=== PATIENT | female | born 1985 | race Caucasian/White ===

== ENCOUNTER 2020-08-31 10:48 | Emergency (ER) | payer OTHER, SELFPAY ==
[2020-08-31 11:00] VITALS: BP 126/75; PULSE 72; RESP 17; TEMP 36.9; O2SAT 96
--- NOTE | 2020-08-31 11:44 | XR_ITS ---
EXAMINATION: XR CHEST CLINICAL INFORMATION: SOB and cough. COMPARISON: None TECHNIQUE: Frontal view of the chest was obtained. FINDINGS: No significant abnormality is noted involving the heart, lungs, mediastinum, bony thorax or soft tissues. XR/XR chest 1V IMPRESSION: Unremarkable chest exam.
--- NOTE | 2020-08-31 12:32 | ED_ITS ---
HPI - URI/Sore Throat General Chief Complaint: Upper Respiratory Symptoms Stated Complaint: flu like Time Seen by Provider: 08/31/20 11:44 Source: patient Mode of arrival: ambulatory History of Present Illness HPI Narrative: 35-year-old female presenting to ED complaining of productive cough, sore throat, and intermittent SOB x3 days. Reports chest discomfort when coughing. Reports was around others and jail house that are having similar symptoms. Denies fever, chills, recent travel, ear pain MD elicited complaint: cough and sore throat Related Data Allergies Allergy/AdvReac Type Severity Reaction Status Date / Time No Known Allergies Allergy Verified 08/31/20 11:03 Review of Systems Review of Systems: Constitutional: No Weight loss, No Fever, No Chills ENT/Mouth: No Ear Pain, + Nasal Congestion, No Sinus Pain, No Hoarseness, + sore throat, + Rhinorrhea, No Swallowing Difficulty Cardiovascular: + Chest Pain when coughing, + SOB Respiratory: + Cough, No Sputum, No Wheezing Skin: No Skin Lesions, No rash Yes all other systems are reviewed and are negative [facility] Past Medical History Medical History (Updated 08/31/20 @ 12:36 by CORY Ng) No known health problems Social History Social History Advance Directives: No Advance Directives Information Provided: No Physical Exam Vital Signs: Vital Signs: Vital Signs Temp Pulse Resp BP Pulse Ox 08/31/20 11:00 98.4 F 72 17 126/75 96 Body Mass Index 30.0 Const: General: cooperative and healthy appearing Orientation/consciousness: patient oriented x3 Limitations: no limitations HENMT: Head: Yes normal to inspection Ears: hearing grossly normal bilaterally General nose exam: Normal external nose present Face and sinus: Yes normal facial exam Mouth: Normal oral and palatal mucosa present Throat: Yes uvula midline and Yes abnormal tonsil (Mild bilateral tonsillar erythema. No swelling or exudates) Eyes: General: appearance normal, both eyes and all related structures EOM: EOMs intact bilaterally Neck: Neck: Yes normal visual inspection and Yes no lymphadenopathy Resp: Effort & Inspection: normal respiratory effort Auscultation: clear to auscultation bilaterally, no crackles, no rales and no rhonchi Cardio: Rate: regular rate Heart sounds: S1 normal heart sound present and S2 normal heart sound present Skin: Rashes: no rashes Wounds: no wounds Neuro: General: patient oriented x3 Gait exam (Neuro): Normal gait present Extrem: General: Yes normal to inspection Course Course Course Narrative: -CXR unremarkable Discharge Plan Discharge Clinical Impression: Viral infection Patient Disposition: Home, Self-Care Instructions: Viral Syndrome (ED) Additional Instructions: Your x-ray was unremarkable today in the ED You were tested for COVID-19, the results should be back in 1-3 days, we will call you positive for negative If he develops high fever unresolved by medications at home, constant worsening chest pain/shortness of breath return to the ED Follow-up with her doctor Based on your symptoms and history we have sent a COVID-19. Although your RESULT IS PENDING at this time. RESULTS should return within 72 hours. At this time you will be contacted with either NEGATIVE OR POSITIVE results. -Please wait until we contact you for your results. At this time you will be okay for discharge. Please plan for self quarantine for up to 14 days. Do not expose yourself to others. You may not go to work. If testing does come back negative you may return to activities as long as you are no longer having any symptoms for at least 3 days. Please continue to follow cold instructions and wash your hands frequently. You may take Tylenol as directed on the bottle for pain or fever. Patient seen in the emergency department on 04/30/2020 and should be excused from work until negative test results AND until 72 hours without any symptoms AND at least 10 days have passed since symptoms first appeared or since last exposure to COVID-19 positive patient CDC Guidelines for home isolation: - Stay away from others - WEAR A MASK if you are sick AND STAY HOME - Cover your mouth and nose with a tissue when you cough or sneeze. Dispose of tissues in a lined trash can and wash your hands immediately with soap and water for at least 20 seconds. If soap and water are not available, clean hands with alcohol-based hand refining machine operator that contains at least 60% alcohol. - Clean your hands often with soap and water for at least 20 seconds - Avoid touching your eyes, nose and mouth with unwashed hands - Do not share dishes, drinking glasses, cups, eating utensils, towels, or bedding with other people in your home. After using these items, wash them thoroughly with soap and water or put in the regulatory auditor. - Clean high-touch surfaces in your isolation area ( sick room and bathroom) every day; let a caregiver clean and disinfect high-touch surfaces in other areas of the home. Clean the area or item with soap and water or another detergent if it is dirty. Then, use a household disinfectant. - Limit contact with pets and animals: If you must care for a pet, wash your hands before and after interacting with them) Referrals: Physician,Unknown [Primary Care Provider] - 5 days (Your PCP) Stand Alone Forms: Work/School Release
== END 2020-08-31 12:43 | disposition home or self-care (01) ==
PROVIDERS: Physician Assistant; Emergency Provider Emergency Medicine
DX: B34.9 Viral infection, unspecified (principal); Z20.828 Contact with and (suspected) exposure to other viral communicable diseases
CPT/HCPCS: 71045; 87071; 87147; 87635; 87880; 99283

== ENCOUNTER 2023-04-06 08:43 | Emergency (ER) | payer OTHER, SELFPAY ==
--- NOTE | 2023-04-06 08:56 | ED_ITS ---
HPI - General Adult General Chief complaint: Abdominal Pain Stated complaint: abd pain Time Seen by Provider: 04/06/23 08:53 Source: patient Mode of arrival: ambulatory Limitations: no limitations History of Present Illness HPI narrative: Patient is a 37-year-old female with history of hepatitis C and cirrhosis pre senting with difficulty urinating as well as right upper quadrant abdominal pain and right flank pain. Intermittent nausea and vomiting. She reports subjective fevers for the past few nights, wakes up covered in sweat, has chills. States this morning was unable to urinate and has not urinated since. Denies any dysuria or hematuria. Denies any abnormal vaginal discharge. Denies any blood in stool or dark, tarry stools. She also reports that she has not menstruated for the past several months, and that prior to that her menses was typically very regular. She reports relapsing on injecting fentanyl and cocaine over the past two years. Has not seen a provider in over two years. Reports occasional shortness of breath but denies cough. Denies any prior abdominal surgeries. Denies chest pain. MD complaint: unable to urinate, abdominal pain Onset (ago): month(s) Location: abdomen Radiation: flank Severity scale (1-10): 6 Pain Consistency: intermittent Relieving factors: none Exacerbating factors: movement Associated symptoms: fever/chills, nausea/vomiting and shortness of breath Treatments prior to arrival: none Related Data Previous Rx's Medication Instructions Recorded cephalexin 500 mg capsule 500 mg PO QID #28 caps 04/06/23 Allergies Allergy/AdvReac Type Severity Reaction Status Date / Time No Known Allergies Allergy Verified 08/31/20 11:03 Review of Systems Review of Systems: As per HPI. Yes all other systems are reviewed and are negative Constitutional: Constitutional: Reports as per HPI [facility] Past Medical History Medical History (Updated 04/06/23 @ 11:58 by Ary Pereira NP) No known health problems Social History Social History Alcohol intake: current Alcohol intake frequency: 0-2 drinks per day Alcohol type: beer and hard liquor Smoked in Last 30 Days: Yes Use of substances other than those prescribed or required for medical reasons: Yes Substance Use Type: Heroin, IV Drugs and Marijuana Substance Use Frequency: Daily Last Used Substance: Hours (ago) Any prior treatment program specific to substance use: Yes Advance Directives: No Advance Directives Information Provided: No Patient : No Physical Exam ED Vital Signs: Vital Signs - 24 hr 04/06/23 09:03 04/06/23 09:06 Temperature 98.9 F Pulse Rate 121 H 112 H Respiratory Rate 22 H 20 Blood Pressure 137/70 Pulse Oximetry 98 98 Oxygen Delivery Method Room Air Room Air BMI result Body Mass Index 27.5 Vital signs have been reviewed and appear to be correct. Blood pressure normal. Heart rate tachycardic. Respiratory rate normal. Temperature normal. Oxygen saturation normal. Const General: cooperative, healthy appearing and no acute distress Orientation/consciousness: oriented to person, oriented to place, oriented to time and patient oriented x3 Limitations: no limitations HENMT Head: Yes normocephalic and Yes atraumatic Ears: external ears normal General nose exam: Normal external nose present Face and sinus: Yes face symmetric Mouth: oropharynx normal and moist mucous membranes Throat: Yes uvula midline Eyes Pupils: Equal, round and reactive pupils present Neck Neck: Yes normal visual inspection and Yes supple Resp Effort & Inspection: normal respiratory effort and able to speak in complete sentences Auscultation: clear to auscultation bilaterally Cardio Rate: regular rate Rhythm: regular rhythm Heart sounds: S1 normal heart sound present and S2 normal heart sound present GI Inspection: Yes normal to inspection Palpation (GI): Soft to palpation, nontender, no guarding and No Rebound tenderness present Auscultation: normoactive bowel sounds General: Yes no CVA tenderness Back/Spine/Pelvis Back: no CVA tenderness Skin General skin exam: elasticity normal and turgor normal Neuro General: oriented to person, oriented to place, oriented to time, patient oriented x3, moves all extremities, no focal motor deficits and CN's II-XI intact bilaterally Cranial nerves: Yes Equal, round and reactive pupils present Cognition (Neuro): normal cognition Extrem General: Yes full ROM, Yes no pedal edema and Yes no calf tenderness Psych Mental Status: mental status grossly normal Affect: normal affect Thought process: Normal thought process present Course Course Course Narrative: 10:52 Critical magnesium of 1.4 received from lab, 2g IV ordered 11:46 Patient able to urinate, 2+ leukocytes, + nitrites, unlikely pyelo as no CVA tenderness, afebrile. Elevated LFTs appear consistent with baseline. No indication for imaging at this time as abdomen is soft and nontender on exam. Will complete infusion of mag and IVF and discharge home on antibiotics. Instructed patient to follow up with PCP this week. All results discussed with patient and all questions answered, return precautions discussed at bedside. Medications Administered Discontinued Medications Generic Name Dose Route Start Last Admin Trade Name Randolphq PRN Reason Stop Dose Admin Sodium Chloride 1,000 mls @ 999 mls/hr 04/06/23 09:45 04/06/23 11:21 Ns IV 04/06/23 10:45 Infused .Q1H1M ANISHA Infusion Magnesium Sulfate 2 gm in 50 mls @ 25 mls/hr 04/06/23 10:53 04/06/23 11:24 Magnesium Sulfate/H2o IV 04/06/23 12:52 25 mls/hr ONCE ONE Administration Sodium Chloride 1,000 mls @ 999 mls/hr 04/06/23 11:30 04/06/23 12:14 Ns IV 04/06/23 12:30 999 mls/hr .Q1H1M ANISHA Administration Medical Decision Making Medical Decision Making [facility] Narrative: Patient is a 37-year-old female with history of hepatitis C and cirrhosis presenting with difficulty urinating as well as right upper quadrant abdominal pain and right flank pain. On exam patient is anxious, tearful, awake, A+Ox3, normal neurological exam without focal deficits, lungs clear throughout, abdomen soft and nontender, no CVA tenderness, no lower extremity edema. Concern for UTI/pyelonephritis, nephrolithiasis, , cholecystitis, pancreatitis. Less likely ACS/[place], pna, PE (low risk [place]). Unlikely AAA rupture, aortic dissection, mesenteric ischemia, bowel obstruction. Plan: bladder scan, EKG, labs including troponin, UA, reassess. Please refer to course for remaining clinical decision making. Differential Diagnosis Differential Diagnoses: The differential diagnosis associated with the presentation includes As above. Lab Data [facility] Lab Attestation statement: I reviewed the patient's lab results. 04/06/23 09:53 04/06/23 Unknown Labs: Lab Results 04/06/23 04/06/23 04/06/23 Range/Units 09:53 10:03 10:03 WBC 6.0 (4.8-10.8) X10*3/uL RBC 4.07 L (4.20-5.50) X10*6/uL Hgb 12.1 (12.0-16.0) g/dl Hct 36.4 L (37.0-47.0) % MCV 89.4 (80.0-98.0) fL MCH 29.7 (27.0-33.0) pg MCHC 33.2 (31.0-35.0) g/dl RDW 14.2 (11.0-16.0) % Plt Count 207 (160-400) X10*3/uL MPV 10.3 (9.4-12.3) fL Immature Gran % (Auto) 0.3 (0.0-0.4) % Neut % (Auto) 60.4 (45-73) % Lymph % (Auto) 28.6 (20-40) % Teller % (Auto) 9.5 (2-11) % Eos % (Auto) 0.5 (0-4) % Baso % (Auto) 0.7 (0-2) % Lymph # (Auto) 1.7 (1.2-4.9) X10*3/uL Teller # (Auto) 0.6 (0.1-1.2) X10*3/uL Eos # (Auto) 0.0 (0.0-0.4) X10*3/uL Baso # (Auto) 0.0 (0.0-0.2) X10*3/uL Abs Immat Gran (auto) 0.02 (0.00-0.03) X10*3/uL Absolute Neuts (auto) 3.6 (2.0-8.3) x10*3/uL Absolute Nucleated RBC 0.000 (0.0-0.012) X10*3/uL Nucleated RBC % (auto) 0.0 (0.0-0.2) /100WBC PT 14.7 H (10.0-13.1) SEC INR 1.3 H (0.9-1.1) Sodium (135-145) mmol/L Potassium (3.3-5.1) mmol/L Chloride (96-108) mmol/L Carbon Dioxide (22-29) mmol/L Anion Gap (12-20) BUN (9-16) mg/dL Creatinine (0.5-1.4) mg/dL Estim Creat Clear Calc Estimated GFR Random Glucose (60-115) mg/dL Calcium (8.4-10.2) mg/dL Magnesium (1.6-2.6) mg/dL Total Bilirubin (0.0-1.0) mg/dL Direct Bilirubin (0.0-0.5) mg/dL AST (5-31) U/L ALT (0-31) U/L Alkaline Phosphatase (39-117) U/L Troponin I High Sens < 2.7 (<3.5-17.0) ng/L Total Protein (6.5-8.0) g/dL Albumin (3.5-5.0) g/dL Lipase (8-78) U/L Beta HCG, Quant mIU/mL Urine Color Urine Appearance Urine pH (5.0-9.0) Ur Specific [place] (1.005-1.025) Urine Protein (Neg-Trace) mg/dL Urine Glucose (UA) (Negative) mg/dL Urine Ketones (Negative) mg/dL Urine Blood (Negative) Urine Nitrite (Negative) Ur Leukocyte Esterase (Negative) Urine RBC (0-2) /HPF Urine WBC (0-5) /HPF Ur Squamous Epith Cells (0-2) /HPF Urine Bacteria (None Seen) Hyaline Casts (0-2) /LPF 04/06/23 04/06/23 Range/Units 11:26 Unknown WBC (4.8-10.8) X10*3/uL RBC (4.20-5.50) X10*6/uL Hgb (12.0-16.0) g/dl Hct (37.0-47.0) % MCV (80.0-98.0) fL MCH (27.0-33.0) pg MCHC (31.0-35.0) g/dl RDW (11.0-16.0) % Plt Count (160-400) X10*3/uL MPV (9.4-12.3) fL Immature Gran % (Auto) (0.0-0.4) % Neut % (Auto) (45-73) % Lymph % (Auto) (20-40) % Teller % (Auto) (2-11) % Eos % (Auto) (0-4) % Baso % (Auto) (0-2) % Lymph # (Auto) (1.2-4.9) X10*3/uL Teller # (Auto) (0.1-1.2) X10*3/uL Eos # (Auto) (0.0-0.4) X10*3/uL Baso # (Auto) (0.0-0.2) X10*3/uL Abs Immat Gran (auto) (0.00-0.03) X10*3/uL Absolute Neuts (auto) (2.0-8.3) x10*3/uL Absolute Nucleated RBC (0.0-0.012) X10*3/uL Nucleated RBC % (auto) (0.0-0.2) /100WBC PT (10.0-13.1) SEC INR (0.9-1.1) Sodium 136 (135-145) mmol/L Potassium 3.8 (3.3-5.1) mmol/L Chloride 99 (96-108) mmol/L Carbon Dioxide 29 (22-29) mmol/L Anion Gap 12 (12-20) BUN 10 (9-16) mg/dL Creatinine 0.94 (0.5-1.4) mg/dL Estim Creat Clear Calc 80.0 Estimated GFR > 60 Random Glucose 110 (60-115) mg/dL Calcium 10.0 (8.4-10.2) mg/dL Magnesium 1.4 L* (1.6-2.6) mg/dL Total Bilirubin 1.4 H (0.0-1.0) mg/dL Direct Bilirubin 0.6 H (0.0-0.5) mg/dL AST 65 H (5-31) U/L ALT 52 H (0-31) U/L Alkaline Phosphatase 83 (39-117) U/L Troponin I High Sens (<3.5-17.0) ng/L Total Protein 7.5 (6.5-8.0) g/dL Albumin 3.5 (3.5-5.0) g/dL Lipase 15 (8-78) U/L Beta HCG, Quant < 2 mIU/mL Urine Color Yellow Urine Appearance Cloudy Urine pH 7.0 (5.0-9.0) Ur Specific [place] <= 1.005 (1.005-1.025) Urine Protein Negative (Neg-Trace) mg/dL Urine Glucose (UA) Negative (Negative) mg/dL Urine Ketones Negative (Negative) mg/dL Urine Blood Negative (Negative) Urine Nitrite Positive H (Negative) Ur Leukocyte Esterase Moderate (2+) H (Negative) Urine RBC 0-2 (0-2) /HPF Urine WBC 6-10 H (0-5) /HPF Ur Squamous Epith Cells 6-10 (0-2) /HPF Urine Bacteria 4+ (None Seen) Hyaline Casts 0-2 (0-2) /LPF Independent Interpretation I performed an independent interpretation of an: EKG Interpretation: sinus tachycardia, rate 105bpm, normal NV and QT intervals, no evidence of STEMI External Record Review External record reviewed: Inpatient record, Office record and Outpatient record Prescription Management I considered prescription management with: Antibiotic Chronic Conditions Patient?s care impacted by: Other (hepatitis, cirrhosis) Discharge Plan Discharge Clinical Impression: Urinary tract infection Patient Disposition: Home, Self-Care Instructions: Urinary Tract Infection in Women (ED), Urinary Tract Infection in Women (DC) Additional Instructions: You have been evaluated in the emergency department today for abdominal pain. Your evaluation did not show evidence of medical conditions requiring emergent intervention at this time. Your liver enzymes were elevated so please follow up with your primary care provider this week. You are being prescribed an antibiotic for your urinary tract infection. Please complete the full course of antibiotics even if your symptoms improve. Return to the emergency department if you experience worsening or uncontrolled pain, fevers 100.4? F or greater, recurrent vomiting, inability to tolerate food or fluids by mouth, bloody stools or vomit, black or tarry stools, inability to urinate, back or flank pain, or any other concerning symptoms. Prescriptions: New cephalexin 500 mg capsule 500 mg PO QID Qty: 28 0RF Referrals: [facility] [place] Gastroenterology Services [Provider Group]
[2023-04-06 09:03] VITALS: BP 137/70; PULSE 121; RESP 22; TEMP 37.2; O2SAT 98; BMI 27.5
[2023-04-06 09:06] VITALS: PULSE 112; RESP 20; O2SAT 98
--- OUTSIDE RECORDS SUMMARY | 2023-04-06 09:18 | XMS_ITS | Continuity of Care Document ---
Author Name Unknown Organization [facility] Address [address] [place] [address]- Care Team Providers Care Authorization Coordinator Name Role Phone Ryan Menchaca MD Primary Care Physician Encounter [facility] [place] Date(s): 03/12/20 - 03/19/20 [facility] [address] [place] [id number] Attending Physician: Megha Jacobsen MD Admitting Physician: Lee Orlando MD Allergies, Adverse Reactions, Alerts Substance Reaction Severity Status NKA Active Immunizations Given and Recorded Vaccine Date Status Refusal Reason influenza virus vaccine, inactivated 11/14/19 Give n influenza virus vaccine, inactivated 1 08/21/17 Gi claudia influenza virus vaccine, inactivated 08/18/15 Give n tetanus/diphtheria/pertussis, acel(Tdap) 08/21/17 Given Hepatitis A Adult Vaccine 12/16/15 Given 1Result Comment: [08/21/2017] [id number] Medications albuterol 0.083% inhalation solution 3 mL = 2.5 mg, Neb, Once, Given in clinic per Ashley Bassett RN, # 3 mL, 0 Refills, Soft Stop, 11/02/17 11:58:00 Start Date: 11/02/17 Status: Ordered albuterol CFC free 90 mcg/inh inhalation aerosol 2, puffs, Inhalation, Every 4 hours, PRN, # 1 each, Refills 1, Tot. Refills 1, Maintenance, 11/02/17 11:47:19, Aerosol, Route to Pharmacy Electronically, [id number], [id number], Compound Start Date: 11/02/17 Stop Date: 01/01/18 Status: Ordered FLUoxetine 40 mg oral capsule 1 capsule = 40 mg, By Mouth, Daily, # 30 capsule, 2 Refills, Maintenance, 03/12/20 16:17:00 EDT, Capsule, [facility][id number], 163, cm, 12/29/19 9:37:00 EST, Height, 79, kg, 12/20/19 13:33:00 EST, DryWeight Start Date: 03/12/20 Status: Ordered Liletta 52 mg intrauteral device 1 each = 52 mg, Intrauterine, Once, # 1 each, 0 Refills, Soft Stop, 10/25/17 14:21:03 Start Date: 10/25/17 Status: Ordered Methadone = 100 mg, By Mouth, Daily, 0 Refills, Maintenance, 08/11/15 8:54:30 EDT, [facility] Start Date: 08/11/15 Status: Ordered Nicotine 2 mg gum 1 each = 2 mg, Chew, Every 2 hours, PRN as needed for smoking cessation, # 160 each, 1 Refills, Maintenance, 12/29/19 9:43:00 EST, Gum, [facility]/pharm[facility] #[id number], 163, cm, 12/29/19 9:37:00 EST, Height, 79, kg, 12/20/19 13:33:00 EST, Dry Weight Start Date: 12/29/19 Status: Ordered Nicotine 7 mg/24 hour patch 1 patch, Topically, Daily, # 30 patch, 1 Refills, Maintenance, 12/29/19 9:43:00 EST, Patch, [facility]/pharmacy #[id number], 1 patch Topically Daily, 163, cm, 12/29/19 9:37:00 EST, Height, 79, kg, 12/20/19 13:33:00 EST, Dry Weight Start Date: 12/29/19 Status: Ordered Multivitamins By Mouth, Daily, 0 Refills, Maintenance, 09/04/17 13:43:27 Start Date: 09/04/17 Status: Ordered traZODone 100 mg oral tablet 100 mg, 1, tablet, By Mouth, Daily at bedtime, # 30 tablet, Refills 0, Tot. Refills 0, Maintenance,02/25/20 8:41:00 EDT, Route to Pharmacy Electronically, [facility] #[id number], 163, cm, 12/29/19 9:37:00 EST, Height, 79, kg, 12/20/19 13:33:00 EST, Dry W... 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
--- OUTSIDE RECORDS SUMMARY | 2023-04-06 09:18 | XMS_ITS | Continuity of Care Document ---
Author Name Unknown Organization [facility] Address [address] [place] [address]- Care Team Providers Care Finished Goods Planner Name Role Phone Ryan Menchaca MD Primary Care Physician Encounter [facility] [place] Date(s): 02/25/20 - 03/03/20 [facility] [address] [place] [address]- [facility] Attending Physician: Asiya Nascimento MD Admitting Physician: Johanny SOUSA, Lee Betancur Allergies, Adverse Reactions, Alerts Substance Reaction Severity Status NKA Active Immunizations Given and Recorded Vaccine Date Status Refusal Reason influenza virus vaccine, inactivated 11/14/19 Give n influenza virus vaccine, inactivated 1 08/21/17 Gi claudia influenza virus vaccine, inactivated 08/18/15 Give n tetanus/diphtheria/pertussis, acel(Tdap) 08/21/17 Given Hepatitis A Adult Vaccine 12/16/15 Given 1Result Comment: [08/21/2017] [id number] Medications albuterol 0.083% inhalation solution 3 mL = 2.5 mg, Neb, Once, Given in clinic per Ashley Bassett RN, # 3 mL, 0 Refills, Soft Stop, 11/02/17 11:58:00 Start Date: 11/02/17 Status: Ordered albuterol CFC free 90 mcg/inh inhalation aerosol 2, puffs, Inhalation, Every 4 hours, PRN, # 1 each, Refills 1, Tot. Refills 1, Maintenance, 11/02/17 11:47:19, Aerosol, Route to Pharmacy Electronically, [id number], [id number], Compound Start Date: 11/02/17 Stop Date: 01/01/18 Status: Ordered FLUoxetine 20 mg oral capsule 20 mg, 1, capsule, By Mouth, Daily, # 30 capsule, Refills 3, Tot. Refills 3, Maintenance, 12/29/19 9:56:00 EST, Route to Pharmacy Electronically, [facility]/pharmacy #[id number], 163, cm, 12/29/19 9:37:00 EST, Height, 79, kg, 12/20/19 13:33:00 EST, Dry Weight Start Date: 12/29/19 Stop Date: 04/27/20 Status: Ordered Liletta 52 mg intrauteral device 1 each = 52 mg, Intrauterine, Once, # 1 each, 0 Refills, Soft Stop, 10/25/17 14:21:03 Start Date: 10/25/17 Status: Ordered Methadone = 100 mg, By Mouth, Daily, 0 Refills, Maintenance, 08/11/15 8:54:30 EDT, [facility] Start Date: 08/11/15 Status: Ordered Nicotine 2 mg gum 1 each = 2 mg, Chew, Every 2 hours, PRN as needed for smoking cessation, # 160 each, 1 Refills, Maintenance, 12/29/19 9:43:00 EST, Gum, [facility]/pharmacy #[id number], 163, cm, 12/29/19 9:37:00 EST, Height, 79, kg, 12/20/19 13:33:00 EST, Dry Weight Start Date: 12/29/19 Status: Ordered Nicotine 7 mg/24 hour patch 1 patch, Topically, Daily, # 30 patch, 1 Refills, Maintenance, 12/29/19 9:43:00 EST, Patch, [facility]/pharmacy #[id number], 1 patch Topically Daily, 163, cm, [...] Maintenance,02/25/20 8:41:00 EDT, Route to Pharmacy Electronically, [facility]/pharmacy #1130, 163, cm, 12/29/19 9:37:00 EST, Height, [...]
--- OUTSIDE RECORDS SUMMARY | 2023-04-06 09:18 | XMS_ITS | Continuity of Care Document ---
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 Name Role Phone Gulshan Sherman MD Primary Care Physician [phone] Encounter [facility] Date(s): 11/02/21 - 12/02/21 [facility] [address] [place] [id number]- Attending Physician: Rodrick Encinas Admitting Physician: Rodrick Encinas Referring Physician: AdmtrRodrick Allergies, Adverse Reactions, Alerts No Known Allergies Immunizations Given and Recorded Vaccine Date Status Refusal Reason influenza virus vaccine, inactivated 11/14/19 Give n influenza virus vaccine, inactivated 1 08/21/17 Gi claudia influenza virus vaccine, inactivated 08/18/15 Give n tetanus/diphtheria/pertussis, acel(Tdap) 08/21/17 Given Hepatitis A Adult Vaccine 12/16/15 Given 1Result Comment: [08/21/2017] [id number] Medications albuterol 0.083% inhalation solution 3 mL = 2.5 mg, Neb, Once, Given in clinic per Ashley Bassett RN, # 3 mL, 0 Refills, Soft Stop, 11/02/17 11:58:00 Start Date: 11/02/17 Status: Ordered albuterol CFC free 90 mcg/inh inhalation aerosol 2, puffs, Inhalation, Every 4 hours, PRN, # 1 each, Refills 1, Tot. Refills 1, Maintenance, 11/02/17 11:47:19, Aerosol, Route to Pharmacy Electronically, [id number], [facility]pharmacy [facility][id number], Compound Start Date: 11/02/17 Stop Date: 01/01/18 Status: Ordered FLUoxetine 40 mg oral capsule 1 capsule = 40 mg, By Mouth, Daily, # 30 capsule, 2 Refills, Maintenance, 07/28/20 15:59:00 EDT, Capsule, [facility]304[facility], 163, cm, 12/29/19 9:37:00 EST, Height, 79, kg, 12/20/19 13:33:00 EST, Dry Weight Start Date: 07/28/20 Status: Ordered ibuprofen 600 mg oral tablet 600 mg, 1, tablet, By Mouth, Every 8 hours, PRN, with food or milk, # 50 tablet, Refills 0, Tot. Refills 0, Maintenance, Headache, 06/23/20 13:21:00 EDT, Route to Pharmacy Electronically, [facility]/pharmacy #[id number], 163, cm, 12/29/19 9:37:00 EST, Height, 79,... Start Date: 06/23/20 Status: Ordered Liletta 52 mg intrauteral device 1 each = 52 mg, Intrauterine, Once, # 1 each, 0 Refills, Soft Stop, 10/25/17 14:21:03 Start Date: 10/25/17 Status: Ordered Methadone = 100 mg, By Mouth, Daily, 0 Refills, Maintenance, 08/11/15 8:54:30 EDT, [facility] Start Date: 08/11/15 Status: Ordered Nicotine 2 mg gum 1 each = 2 mg, Chew, Every 2 hours, PRN as needed for smoking cessation, # 160 each, 1 Refills, Maintenance, 12/29/19 9:43:00 EST, Gum, [facility]/pharmacy #[id number], 163, cm, 12/29/19 9:37:00 EST, Height, 79, kg, 12/20/19 13:33:00 EST, Dry Weight Start Date: 12/29/19 Status: Ordered Nicotine 7 mg/24 hour patch 1 patch, Topically, Daily, # 30 patch, 1 Refills, Maintenance, 12/29/19 9:43:00 EST, Patch, [id number], 1 patch Topically Daily, 163, cm, 12/29/19 9:37:00 EST, Height, 79, kg, 12/20/19 13:33:00 EST, Dry Weight Start Date: 12/29/19 Status: Ordered Multivitamins By Mouth, Daily, 0 Refills, Maintenance, 09/04/17 13:43:27 Start Date: 09/04/17 Status: Ordered traZODone 100 mg oral tablet 100 mg, 1, tablet, By Mouth, Daily at bedtime, # 30 tablet, Refills 5, Tot. Refills 5, Maintenance,06/03/20 16:08:00 EDT, Route to Pharmacy Electronically, [facility]/pharmacy #1130, 163, cm, 12/29/19 9:37:00 EST, Height, 79, kg, 12/20/19 13:33:00 EST, Dry... 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
--- OUTSIDE RECORDS SUMMARY | 2023-04-06 09:18 | XMS_ITS | Continuity of Care Document ---
Author Name Unknown Organization [facility] Address [address] [place] [address]- Care Team Providers Care Manufacturing Business Analyst Name Role Phone Brittany SOUSA, Bridgette Betancur Primary Care Physician Encounter [facility] Date(s): 07/28/20 - 08/27/20 [facility] [address] [place] [address]- [facility] Allergies, Adverse Reactions, Alerts Substance Reaction Severity Status NKA Active Immunizations Given and Recorded Vaccine Date Status Refusal Reason influenza virus vaccine, inactivated 11/14/19 Give n influenza virus vaccine, inactivated 1 08/21/17 Gi claudia influenza virus vaccine, inactivated 08/18/15 Give n tetanus/diphtheria/pertussis, acel(Tdap) 08/21/17 Given Hepatitis A Adult Vaccine 12/16/15 Given 1Result Comment: [08/21/2017] [id number] Medications albuterol 0.083% inhalation solution 3 mL = 2.5 mg, Neb, Once, Given in clinic per Ashley Bassett RN, # 3 mL, 0 Refills, Soft Stop, 11/02/17 11:58:00 Start Date: 11/02/17 Status: Ordered albuterol CFC free 90 mcg/inh inhalation aerosol 2, puffs, Inhalation, Every 4 hours, PRN, # 1 each, Refills 1, Tot. Refills 1, Maintenance, 11/02/17 11:47:19, Aerosol, Route to Pharmacy Electronically, [id number], [facility]/pharmacy #1130, Compound Start Date: 11/02/17 Stop Date: 01/01/18 Status: Ordered FLUoxetine 40 mg oral capsule 1 capsule = 40 mg, By Mouth, Daily, # 30 capsule, 2 Refills, Maintenance, 07/28/20 15:59:00 EDT, Capsule, [facility], 163, cm, 12/29/19 9:37:00 EST, Height, 79, kg, 12/20/19 13:33:00 EST, Dry Weight Start Date: 07/28/20 Status: Ordered ibuprofen 600 mg oral tablet 600 mg, 1, tablet, By Mouth, Every 8 hours, PRN, with food or milk, # 50 tablet, Refills 0, Tot. Refills 0, Maintenance, Headache, 06/23/20 13:21:00 EDT, Route to Pharmacy Electronically, [facility]/pharmacy #183, 163, cm, 12/29/19 9:37:00 EST, Height, 79,... Start Date: 06/23/20 Status: Ordered Liletta 52 mg intrauteral device 1 each = 52 mg, Intrauterine, Once, # 1 each, 0 Refills, Soft Stop, 10/25/17 14:21:03 Start Date: 10/25/17 Status: Ordered Methadone = 100 mg, By Mouth, Daily, 0 Refills, Maintenance, 08/11/15 8:54:30 EDT, [facility] Start Date: 08/11/15 Status: Ordered Nicotine 2 mg gum 1 each = 2 mg, Chew, Every 2 hours, PRN as needed for smoking cessation, # 160 each, 1 Refills, Maintenance, 12/29/19 9:43:00 EST, Gum, [id number], 163, cm, 12/29/19 9:37:00 EST, Height, [...] Maintenance,06/03/20 16:08:00 EDT, Route to Pharmacy Electronically, [facility]/pharmacy #1130, 163, cm, 12/29/19 9:37:00 EST, [...]
--- OUTSIDE RECORDS SUMMARY | 2023-04-06 09:18 | XMS_ITS | Continuity of Care Document ---
Author Name Unknown Organization 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 Name Role Phone Ryan Menchaca MD Primary Care Physician Encounter [facility] [place] Date(s): 11/10/19 - 01/17/[address] [address]- [facility] Attending Physician: Not on Staff, Attending MD Referring Physician: Ryan Menchaca MD Allergies, Adverse Reactions, Alerts Substance Reaction Severity Status NKA Active Immunizations Given and Recorded Vaccine Date Status Refusal Reason influenza virus vaccine, inactivated 11/14/19 Give n influenza virus vaccine, inactivated 1 08/21/17 Gi claudia influenza virus vaccine, inactivated 08/18/15 Give n tetanus/diphtheria/pertussis, acel(Tdap) 08/21/17 Given Hepatitis A Adult Vaccine 12/16/15 Given 1Result Comment: [08/21/2017] [id number] Medications albuterol 0.083% inhalation solution 3 mL = 2.5 mg, Neb, Once, Given in clinic per Ashley Bassett RN, # 3 mL, 0 Refills, Soft Stop, 11/02/17 11:58:00 Start Date: 11/02/17 Status: Ordered albuterol 90 mcg/inh inhalation powder 2 puffs, Inhalation, Every 4 hours, PRN as needed, # 1 each, 0 Refills, Maintenance, 09/01/16 14:22:35, Powder, 2 puffs Inhalation Every 4 hours,PRN:as needed Start Date: 09/01/16 Status: Ordered albuterol CFC free 90 mcg/inh inhalation aerosol 2, puffs, Inhalation, Every 4 hours, PRN, # 1 each, Refills 1, Tot. Refills 1, Maintenance, 11/02/17 11:47:19, Aerosol, Route to Pharmacy Electronically, [id number], [facility]/pharmacy #1130, Compound Start Date: 11/02/17 Stop Date: 01/01/18 Status: Ordered Azithromycin 5 Day Dose Pack 250 mg oral tablet 1 pack/packet, By Mouth, Once, # 6 tablet, 0 Refills, Soft Stop, 11/02/17 11:47:20, Tablet Start Date: 11/02/17 Status: Ordered Bactrim DS 800 mg-160 mg oral tablet 1 tablet, By Mouth, 2 times a day, # 6 tablet, 0 Refills, Maintenance, 02/05/18 11:46:25 EDT, 1 tablet By Mouth 2 times a day,x3 days Start Date: 02/05/18 Stop Date: 02/08/18 Status: Ordered FLUoxetine 20 mg oral capsule 20 mg, 1, capsule, By Mouth, Daily, # 30 capsule, Refills 3, Tot. Refills 3, Maintenance, 12/29/19 9:56:00 EST, Route to Pharmacy Electronically, [facility]/pharmacy #[id number], 163, cm, 12/29/19 9:37:00 EST, [...] 1 Refills, Maintenance, 12/29/19 9:43:00 EST, Gum, [facility]/pharmacy #0838, 163, cm, 12/29/19 9:37:00 EST, Height, 79, kg, 12/20/19 13:33:00 EST, Dry Weight Start Date: 12/29/19 Status: Ordered Nicotine 7 mg/24 hour patch 1 patch, Topically, Daily, # 30 patch, 0 Refills, Maintenance, 08/21/17 14:18:42, Patch, 1 patch Topically Daily Start Date: 08/21/17 Status: Ordered Nicotine 7 mg/24 hour patch 1 patch, Topically, Daily, # 30 patch, 1 Refills, Maintenance, 12/29/19 9:43:00 EST, Patch, [facility]/pharmacy #[id number], 1 patch Topically Daily, 163, cm, 12/29/19 9:37:00 EST, Height, 79, kg, 12/20/19 13:33:00 EST, Dry Weight Start Date: 12/29/19 Status: Ordered Multivitamins By Mouth, Daily, 0 Refills, Maintenance, 09/04/17 13:43:27 Start Date: 09/04/17 Status: Ordered traZODone 50 mg oral tablet 50 mg, 1, tablet, By Mouth, Daily at bedtime, # 30 tablet, Refills 0, Maintenance, 12/20/19 13:35:00 EST Start Date: 12/20/19 Status: Ordered Problem List Condition Effective Dates Status Health Status Inform ant Bipolar disorder(Confirmed) Active 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
--- OUTSIDE RECORDS SUMMARY | 2023-04-06 09:18 | XMS_ITS | Continuity of Care Document ---
Author Name Unknown Organization [facility] Address [address] [place] [address]- Care Team Providers Care Mirror Polisher Name Role Phone Brittany SOUSA, Bridgette Betancur Primary Care Physician Encounter [facility] [place] Date(s): 02/17/20 - 06/16/20 [facility] [address] [place] [address]- [facility] Attending Physician: Noam Street MD Admitting Physician: Noam Street MD Referring Physician: Bria SOUSA, [facility] Allergies, Adverse Reactions, Alerts Substance Reaction Severity Status NKA Active Immunizations Given and Recorded Vaccine Date Status Refusal Reason influenza virus vaccine, inactivated 11/14/19 Give n influenza virus vaccine, inactivated 1 08/21/17 Gi claudia influenza virus vaccine, inactivated 08/18/15 Give n tetanus/diphtheria/pertussis, acel(Tdap) 08/21/17 Given Hepatitis A Adult Vaccine 12/16/15 Given 1Result Comment: [08/21/2017] [id number] Medications albuterol 0.083% inhalation solution 3 mL = 2.5 mg, Neb, Once, Given in clinic per Ashley Bassett RN, # 3 mL, 0 Refills, Soft Stop, 11/02/17 11:58:00 Start Date: 11/02/17 Status: Ordered albuterol CFC free 90 mcg/inh inhalation aerosol 2, puffs, Inhalation, Every 4 hours, PRN, # 1 each, Refills 1, Tot. Refills 1, Maintenance, 11/02/17 11:47:19, Aerosol, Route to Pharmacy Electronically, [id number], [facility]/pharmacy #1130, Compound Start Date: 11/02/17 Stop Date: 01/01/18 Status: Ordered FLUoxetine 40 mg oral capsule 1 capsule = 40 mg, By Mouth, Daily, # 30 capsule, 2 Refills, Maintenance, 03/12/20 16:17:00 EDT, Capsule, [facility]/pharmacy #1130, 163, cm, 12/29/19 9:37:00 [...] 1 Refills, Maintenance, 12/29/19 9:43:00 EST, Gum, [facility]/pharmacy #0838, 163, cm, 12/29/19 9:37:00 EST, Height, 79, kg, 12/20/19 13:33:00 EST, Dry Weight Start Date: 12/29/19 Status: Ordered Nicotine 7 mg/24 hour patch 1 patch, Topically, Daily, # 30 patch, 1 Refills, Maintenance, 12/29/19 9:43:00 EST, Patch, [facility]/pharmacy #0838, 1 patch Topically Daily, [...] Maintenance,06/03/20 16:08:00 EDT, Route to Pharmacy Electronically, [facility]/pharmacy #1130, 163, cm, 12/29/19 9:37:00 [...]
--- OUTSIDE RECORDS SUMMARY | 2023-04-06 09:18 | XMS_ITS | Continuity of Care Document ---
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 Name Role Phone Gulshan Sherman MD Primary Care Physician Encounter [facility] Date(s): 10/20/21 - 12/02/21 [facility] [address] [place] [id number]- Attending Physician: Not on Staff, Attending MD Allergies, Adverse Reactions, Alerts No Known Allergies Immunizations Given and Recorded Vaccine Date Status Refusal Reason influenza virus vaccine, inactivated 11/14/19 Give n influenza virus vaccine, inactivated 1 08/21/17 Gi claudia influenza virus vaccine, inactivated 08/18/15 Give n tetanus/diphtheria/pertussis, acel(Tdap) 08/21/17 Given Hepatitis A Adult Vaccine 12/16/15 Given 1Result Comment: [08/21/2017] [id number] Medications albuterol 0.083% inhalation solution 3 mL = 2.5 mg, Neb, Once, Given in clinic per Ashley Bassett RN, # 3 mL, 0 Refills, Soft Stop, 11/02/17 11:58:00 Start Date: 11/02/17 Status: Ordered albuterol CFC free 90 mcg/inh inhalation aerosol 2, puffs, Inhalation, Every 4 hours, PRN, # 1 each, Refills 1, Tot. Refills 1, Maintenance, 11/02/17 11:47:19, Aerosol, Route to Pharmacy Electronically, [id number], [facility]/pharmacy #1130, Compound Start Date: 12/29/17 Stop Date: 01/01/18 Status: Ordered FLUoxetine 40 mg oral capsule 1 capsule = 40 mg, By Mouth, Daily, # 30 capsule, 2 Refills, Maintenance, 07/28/20 15:59:00 EDT, Capsule, [facility]61299, 163, cm, 12/29/19 9:37:00 EST, Height, 79, kg, 12/20/19 13:33:00 EST, Dry Weight Start Date: 07/28/20 Status: Ordered ibuprofen 600 mg oral tablet 600 mg, 1, tablet, By Mouth, Every 8 hours, PRN, with food or milk, # 50 tablet, Refills 0, Tot. Refills 0, Maintenance, Headache, 06/23/20 13:21:00 EDT, Route to Pharmacy Electronically, [facility]/pharmacy #2071, 163, cm, 12/29/19 9:37:00 EST, Height, 79,... Start Date: 06/23/20 Status: Ordered Liletta 52 mg intrauteral device 1 each = 52 mg, Intrauterine, Once, # 1 each, 0 Refills, Soft Stop, 10/25/17 14:21:03 Start Date: 10/25/17 Status: Ordered Methadone = 100 mg, By Mouth, Daily, 0 Refills, Maintenance, 08/11/15 8:54:30 EDT, [facility] Start Date: 08/11/15 Status: Ordered Nicotine 2 mg gum 1 each = 2 mg, Chew, Every 2 hours, PRN as needed for smoking cessation, # 160 each, 1 Refills, Maintenance, 12/29/19 9:43:00 EST, Gum, [facility]/pharmacy #0838, 163, cm, 12/29/19 9:37:00 EST, Height, [...] Maintenance,06/03/20 16:08:00 EDT, Route to Pharmacy Electronically, [facility]/pharmacy #1130, 163, cm, 12/29/19 9:37:00 EST, Height, [...]
--- OUTSIDE RECORDS SUMMARY | 2023-04-06 09:18 | XMS_ITS | Continuity of Care Document ---
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 Role Phone Ryan Menchaca MD Primary Care Physician [phone] Encounter [facility] [place] Date(s): 12/29/19 - 02/25/20 [facility] [address] [place] [address]- [facility] Attending Physician: Not on Staff, Attending MD Allergies, Adverse Reactions, Alerts Substance Reaction Severity Status NKA Active Immunizations Given and Recorded Vaccine Date Status Refusal Reason influenza virus vaccine, inactivated 11/14/19 Give n influenza virus vaccine, inactivated 1 08/21/17 Gi claudia influenza virus vaccine, inactivated 08/18/15 Give n tetanus/diphtheria/pertussis, acel(Tdap) 08/21/17 Given Hepatitis A Adult Vaccine 12/16/15 Given 1Result Comment: [08/21/2017] [id number] Medications albuterol 0.083% inhalation solution 3 mL = 2.5 mg, Neb, Once, Given in clinic per Ashley Bassett RN, # 3 mL, 0 Refills, Soft Stop, 11/02/17 11:58:00 Start Date: 11/02/17 Status: Ordered albuterol CFC free 90 mcg/inh inhalation aerosol 2, puffs, Inhalation, Every 4 hours, PRN, # 1 each, Refills 1, Tot. Refills 1, Maintenance, 11/02/17 11:47:19, Aerosol, Route to Pharmacy Electronically, [id number], [facility]/pharmacy #1130, Compound Start Date: 11/02/17 Stop Date: 01/01/18 Status: Ordered FLUoxetine 20 mg oral capsule 20 mg, 1, capsule, By Mouth, Daily, # 30 capsule, Refills 3, Tot. Refills 3, Maintenance, 12/29/19 9:56:00 EST, Route to Pharmacy Electronically, [facility]/pharmacy #0838, 163, cm, 12/29/19 9:37:00 EST, Height, 79, kg, 12/20/19 13:33:00 EST, Dry Weight Start Date: 12/29/19 Stop Date: 04/27/20 Status: Ordered Liletta 52 mg intrauteral device 1 each = 52 mg, Intrauterine, Once, # 1 each, 0 Refills, Soft Stop, 10/25/17 14:21:03 Start Date: 10/25/17 Status: Ordered Methadone = 100 mg, By Mouth, Daily, 0 Refills, Maintenance, 08/11/15 8:54:30 EDT, [facility] Start Date: 08/11/15 Status: Ordered Nicotine 2 mg gum 1 each = 2 mg, Chew, Every 2 hours, PRN as needed for smoking cessation, # 160 each, 1 Refills, Maintenance, 12/29/19 9:43:00 EST, Gum, [facility]/pharmacy #0838, 163, cm, 12/29/19 9:37:00 EST, Height, 79, kg, 12/20/19 13:33:00 EST, Dry Weight Start Date: 12/29/19 Status: Ordered Nicotine 7 mg/24 hour patch 1 patch, Topically, Daily, # 30 patch, 1 Refills, Maintenance, 12/29/19 9:43:00 EST, Patch, [facility]/pharmacy #0838, 1 patch Topically Daily, [...] Maintenance,02/25/20 8:41:00 EDT, Route to Pharmacy Electronically, [facility]/pharmacy #1130, 163, cm, 12/29/19 9:37:00 [...]
--- OUTSIDE RECORDS SUMMARY | 2023-04-06 09:18 | XMS_ITS | Continuity of Care Document ---
Author Name Unknown Organization [facility] Address [address] [place] [address]- Care Team Providers Care Admitting Manager Name Role Phone Brittany SOUSA, Bridgette Betancur Primary Care Physician [facility]counter [facility] Date(s): 05/24/20 - 06/23/20 [facility] [address] [place] [address]- [facility] Allergies, Adverse Reactions, Alerts Substance Reaction Severity Status NKA Active Immunizations Given and Recorded Vaccine Date Status Refusal Reason influenza virus vaccine, inactivated 11/14/19 Give n influenza virus vaccine, inactivated 1 08/21/17 Gi claudia influenza virus vaccine, inactivated 08/18/15 Give n tetanus/diphtheria/pertussis, acel(Tdap) 08/21/17 Given Hepatitis A Adult Vaccine 12/16/15 Given 1Result Comment: [08/21/2017] [id number] Medications albuterol 0.083% inhalation solution 3 mL = 2.5 mg, Neb, Once, Given in clinic per Ashley Bassett RN, # 3 mL, 0 Refills, Soft Stop, 11/02/17 11:58:00 Start Date: 11/02/17 Status: Ordered albuterol CFC free 90 mcg/inh inhalation aerosol 2, puffs, Inhalation, Every 4 hours, PRN, # 1 each, Refills 1, Tot. Refills 1, Maintenance, 11/02/17 11:47:19, Aerosol, Route to Pharmacy Electronically, [id number], [facility]/pharmacy #[id number], Compound Start Date: 11/02/17 Stop Date: 01/01/18 Status: Ordered FLUoxetine 40 mg oral capsule 1 capsule = 40 mg, By Mouth, Daily, # 30 capsule, 2 Refills, Maintenance, 03/12/20 16:17:00 EDT, Capsule, [facility]/pharmacy #1130, 163, cm, 12/29/19 9:37:00 EST, Height, 79, kg, 12/20/19 13:33:00 EST, DryWeight Start Date: 03/12/20 Status: Ordered ibuprofen 600 mg oral tablet 600 mg, 1, tablet, By Mouth, Every 8 hours, PRN, with food or milk, # 50 tablet, Refills 0, Tot. Refills 0, Maintenance, Headache, 06/23/20 13:21:00 EDT, Route to Pharmacy Electronically, [facility]/pharmacy #[id number], 163, cm, 12/29/19 9:37:00 EST, Height, 79,... Start Date: 06/23/20 Status: Ordered Liletta 52 mg intrauteral device 1 each = 52 mg, Intrauterine, Once, # 1 each, 0 Refills, Soft Stop, 10/25/17 14:21:03 Start Date: 10/25/17 Status: Ordered Methadone = 100 mg, By Mouth, Daily, 0 Refills, Maintenance, 08/11/15 8:54:30 EDT, [facility] Start Date: 08/11/15 Status: Ordered Nicotine 2 mg gum 1 each = 2 mg, Chew, Every 2 hours, PRN as needed for smoking cessation, # 160 each, 1 Refills, Maintenance, 12/29/19 9:43:00 EST, Gum, [facility]/pharmacy #0838, 163, cm, 12/29/19 9:37:00 EST, Height, 79, kg, 12/20/19 13:33:00 EST, Dry Weight Start Date: 12/29/19 Status: Ordered Nicotine 7 mg/24 hour patch 1 patch, Topically, Daily, # 30 patch, 1 Refills, Maintenance, 12/29/19 9:43:00 EST, Patch, [facility]/pharmacy #[id number], 1 patch Topically Daily, 163, cm, 12/29/19 9:37:00 EST, Height, 79, kg, 12/20/19 13:33:00 EST, Dry Weight Start Date: 2/24/20 Status: Ordered Multivitamins By Mouth, Daily, 0 Refills, Maintenance, 09/04/17 13:43:27 Start Date: 09/04/17 Status: Ordered traZODone 100 mg oral tablet 100 mg, 1, tablet, By Mouth, Daily at bedtime, # 30 tablet, Refills 5, Tot. Refills 5, Maintenance,06/03/20 16:08:00 EDT, Route to Pharmacy Electronically, [facility]/pharmacy #1130, 163, cm, 12/29/19 9:37:00 [...]
--- OUTSIDE RECORDS SUMMARY | 2023-04-06 09:18 | XMS_ITS | Continuity of Care Document ---
Author Name Unknown Organization [facility] Address [address] [place] [id number]- Care Team Providers Care Form Worker Name Role Phone Jeffrey SOUSA, Rakesh Jaeger Primary Care Physician Encounter [facility] Date(s): 12/18/19 - 12/28/[address] [address]- [facility] Attending Physician: Admtr, Maxwell8 Admitting Physician: Admtr, Ar8 Referring Physician: Admtr, Ar8 Allergies, Adverse Reactions, Alerts Substance Reaction Severity Status NKA Active Immunizations Given and Recorded Vaccine Date Status Refusal Reason influenza virus vaccine, inactivated 11/14/19 Give n influenza virus vaccine, inactivated 1 08/21/17 Gi claudia influenza virus vaccine, inactivated 08/18/15 Give n tetanus/diphtheria/pertussis, acel(Tdap) 08/21/17 Given Hepatitis A Adult Vaccine 12/16/15 Given 1Result Comment: [08/21/2017] [id number] Medications albuterol 0.083% inhalation solution 3 mL [...] 11/02/17 11:47:19, Aerosol, Route to Pharmacy Electronically, [id number], [facility]/pharmacy #1130, Compound Start Date: 11/02/17 Stop [...] capsule, Refills 3, Tot. Refills 3, Maintenance, 09/01/19 14:29:10 EDT, Route to Pharmacy Electronically, [id number], [facility]/pharmacy #1130 Start Date: 09/01/19 Stop Date: 12/30/19 Status: Ordered Liletta 52 mg intrauteral device 1 each = 52 mg, Intrauterine, Once, # 1 each, 0 Refills, Soft Stop, 10/25/17 14:21:03 Start Date: 10/25/17 Status: Ordered Methadone = 100 mg, By Mouth, Daily, 0 Refills, Maintenance, 08/11/15 8:54:30 EDT, [facility] Start Date: 08/11/15 Status: Ordered Nicotine 7 mg/24 hour patch 1 patch, Topically, Daily, # 30 patch, 0 Refills, Maintenance, 08/21/17 14:18:42, Patch, 1 patch Topically Daily Start Date: 08/21/17 Status: Ordered Multivitamins By Mouth, Daily, 0 [...]
--- OUTSIDE RECORDS SUMMARY | 2023-04-06 09:18 | XMS_ITS | Continuity of Care Document ---
Author Name Unknown Organization [facility] Address [address] [place] [address]- Care Team Providers Care Hard Metals Hand Engraver Name Role Phone Ryan Menchaca MD Primary Care Physician [facility] Date[facility]s): 11/14/19 - 11/24/19 [facility] [address] [place] [address]- [facility] Attending Physician: Rodrick Encinas Admitting Physician: Rodrick Encinas Referring Physician: AdmtrRodrick Allergies, Adverse Reactions, Alerts Substance Reaction Severity Status NKA Active Immunizations Given and Recorded Vaccine Date Status Refusal Reason influenza virus vaccine, inactivated 11/14/19 Give n influenza virus vaccine, inactivated 1 08/21/17 Gi claudia influenza virus vaccine, inactivated 08/18/15 Give n tetanus/diphtheria/pertussis, acel(Tdap) 08/21/17 Given Hepatitis A Adult Vaccine 12/16/15 Given 1Result Comment: [08/21/2017] [id number] Medications albuterol 0.083% inhalation solution 3 mL [...] 11/02/17 11:47:19, Aerosol, Route to Pharmacy Electronically, [id number], [facility]/pharmacy #1130, Compound Start Date: 11/02/17 [...] 09/01/19 14:29:10 EDT, Route to Pharmacy Electronically, [id number], [facility]/pharmacy #1130 Start Date: 09/01/19 Stop Date: 12/30/19 Status: Ordered Liletta 52 mg intrauteral device 1 each = 52 mg, Intrauterine, Once, # 1 each, 0 Refills, Soft Stop, 10/25/17 14:21:03 Start Date: 10/25/17 Status: Ordered Methadone 130, By Mouth, Daily, 0 Refills, Maintenance, 08/11/15 8:54:30, [facility] Start Date: 08/11/15 Status: Ordered Nicotine 7 mg/24 hour patch 1 patch, Topically, Daily, # 30 patch, 0 Refills, Maintenance, 08/21/17 14:18:42, Patch, 1 patch Topically Daily Start Date: 08/21/17 Status: Ordered Multivitamins By Mouth, Daily, 0 Refills, Maintenance, 09/04/17 13:43:27 Start Date: 09/04/17 Status: Ordered Problem List Condition Effective Dates Status Health Status Inform ant Bipolar disorder(Confirmed) Active 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
--- OUTSIDE RECORDS SUMMARY | 2023-04-06 09:18 | XMS_ITS | Continuity of Care Document ---
Author Name Unknown Organization [facility] Address [address] [place] [address]- Care Team Providers Care Ui Engineer Name Role Phone Brittany SOUSA, Bridgette Betancur Primary Care Physician [facility]counter [facility] Date(s): 05/31/20 - 06/30/20 [facility] [address] [place] [address]- [facility] Allergies, Adverse Reactions, Alerts Substance Reaction Severity Status NKA Active Immunizations Given and Recorded Vaccine Date Status Refusal Reason influenza virus vaccine, inactivated 11/14/19 Give n influenza virus vaccine, inactivated 1 08/21/17 Gi claudia influenza virus vaccine, inactivated 08/18/15 Give n tetanus/diphtheria/pertussis, acel(Tdap) 08/21/17 Given Hepatitis A Adult Vaccine 12/16/15 Given 1Result Comment: [08/21/2017] [id number] Medications albuterol 0.083% inhalation solution 3 mL = 2.5 mg, Neb, Once, Given in clinic per Ashley Bassett RN, # 3 mL, 0 Refills, Soft Stop, 11/02/17 11:58:00 Start Date: 11/02/17 Status: Ordered albuterol CFC free 90 mcg/inh inhalation aerosol 2, puffs, Inhalation, Every 4 hours, PRN, # 1 each, Refills 1, Tot. Refills 1, Maintenance, 11/02/17 11:47:19, Aerosol, Route to Pharmacy Electronically, [id number], [facility]/pharmacy #1130, Compound Start Date: 11/02/17 Stop Date: 01/01/18 Status: Ordered FLUoxetine 40 mg oral capsule 1 capsule = 40 mg, By Mouth, Daily, # 30 capsule, 2 Refills, Maintenance, 03/12/20 16:17:00 EDT, Capsule, [facility]/pharmacy #1130, 163, cm, 12/29/19 9:37:00 EST, Height, 79, kg, 12/20/19 13:33:00 EST, DryWeight Start Date: 03/12/20 Status: Ordered ibuprofen 600 mg oral tablet 600 mg, 1, tablet, By Mouth, Every 8 hours, PRN, with food or milk, # 50 tablet, Refills 0, Tot. Refills 0, Maintenance, Headache, 06/23/20 13:21:00 EDT, Route to Pharmacy Electronically, [facility]/pharmacy #[id number], 163, cm, 12/29/19 9:37:00 EST, Height, 79,... Start Date: 06/23/20 Status: Ordered Liletta 52 mg intrauteral device 1 each = 52 mg, Intrauterine, Once, # 1 each, 0 Refills, Soft Stop, 10/25/17 14:21:03 Start Date: 10/25/17 Status: Ordered Methadone = 100 mg, By Mouth, Daily, 0 Refills, Maintenance, 08/11/15 8:54:30 EDT, [facility] Start Date: 08/11/15 Status: Ordered Nicotine 2 mg gum 1 each = 2 mg, Chew, Every 2 hours, PRN as needed for smoking cessation, # 160 each, 1 Refills, Maintenance, 12/29/19 9:43:00 EST, Gum, [facility]/pharmacy #0838, 163, cm, 12/29/19 9:37:00 EST, Height, 79, kg, 12/20/19 13:33:00 EST, Dry Weight Start Date: 12/29/19 Status: Ordered Nicotine 7 mg/24 hour patch 1 patch, Topically, Daily, # 30 patch, 1 Refills, Maintenance, 12/29/19 9:43:00 EST, Patch, [facility]/pharmacy #0838, 1 patch Topically Daily, 163, cm, [...] Maintenance,06/03/20 16:08:00 EDT, Route to Pharmacy Electronically, [facility]/pharmacy #1130, 163, cm, 12/29/19 9:37:00 EST, Height, [...]
--- OUTSIDE RECORDS SUMMARY | 2023-04-06 09:18 | XMS_ITS | Continuity of Care Document ---
Author Name Unknown Organization [facility] Address [address] [place] [address]- Care Team Providers Care Mobile Lounge Driver Or Operator Name Role Phone Brittany SOUSA, Bridgette Betancur Primary Care Physician [facility] Date(s): 08/04/20 - 09/03/20 [facility] [address] [place] [address]- [facility] Allergies, Adverse Reactions, Alerts Substance Reaction Severity Status NKA Active Immunizations Given and Recorded Vaccine Date Status Refusal Reason influenza virus vaccine, inactivated 11/14/19 Give n influenza virus vaccine, inactivated 1 08/21/17 Gi claudia influenza virus vaccine, inactivated 08/18/15 Give n tetanus/diphtheria/pertussis, acel(Tdap) 08/21/17 Given Hepatitis A Adult Vaccine 12/16/15 Given 1Result Comment: [08/21/2017] [id number] Medications albuterol 0.083% inhalation solution 3 mL = 2.5 mg, Neb, Once, Given in clinic per Ashley Bassett RN, # 3 mL, 0 Refills, Soft Stop, 11/02/17 11:58:00 Start Date: 11/02/17 Status: Ordered albuterol CFC free 90 mcg/inh inhalation aerosol 2, puffs, Inhalation, Every 4 hours, PRN, # 1 each, Refills 1, Tot. Refills 1, Maintenance, 11/02/17 11:47:19, Aerosol, Route to Pharmacy Electronically, [id number], [facility]/pharmacy #1130, Compound Start Date: 11/02/17 Stop Date: 01/01/18 Status: Ordered FLUoxetine 40 mg oral capsule 1 capsule = 40 mg, By Mouth, Daily, # 30 capsule, 2 Refills, Maintenance, 07/28/20 15:59:00 EDT, Capsule, [facility], 163, cm, 12/29/19 9:37:00 EST, Height, 79, kg, 12/20/19 13:33:00 EST, Dry Weight Start Date: 07/28/20 Status: Ordered ibuprofen 600 mg oral tablet 600 mg, 1, tablet, By Mouth, Every 8 hours, PRN, with food or milk, # 50 tablet, Refills 0, Tot. Refills 0, Maintenance, Headache, 06/23/20 13:21:00 EDT, Route to Pharmacy Electronically, [facility]/pharmacy #1341, 163, cm, 12/29/19 9:37:00 EST, Height, 79,... Start Date: 06/23/20 Status: Ordered Liletta 52 mg intrauteral device 1 each = 52 mg, Intrauterine, Once, # 1 each, 0 Refills, Soft Stop, 10/25/17 14:21:03 Start Date: 10/25/17 Status: Ordered Methadone = 100 mg, By Mouth, Daily, 0 Refills, Maintenance, 08/11/15 8:54:30 EDT, [facility] Start Date: 08/11/15 Status: Ordered Nicotine [...] 16:08:00 EDT, Route to Pharmacy Electronically, [facility]/pharmacy #1130, 163, cm, 12/29/19 9:37:00 EST, Height, 79, kg, 12/20/19 13:33:00 EST, Dry... 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
--- OUTSIDE RECORDS SUMMARY | 2023-04-06 09:18 | XMS_ITS | Continuity of Care Document ---
Author Name Unknown Organization [facility] Address [address] [place] [address]- Care Team Providers Care Corrosion Control Engineer Name Role Phone Brittany SOUSA, Bridgette Betancur Primary Care Physician Encounter [facility] Date(s): 08/04/20 - 09/03/20 [facility] [address] [place] [address]- [facility] Allergies, Adverse Reactions, Alerts Substance Reaction Severity Status NKA Active Immunizations Given and Recorded Vaccine Date Status Refusal Reason influenza virus vaccine, inactivated 11/14/19 Give n influenza virus vaccine, inactivated 1 08/21/17 Gi claudia influenza virus vaccine, inactivated 08/18/15 Give n tetanus/diphtheria/pertussis, acel(Tdap) 08/21/17 Given Hepatitis A Adult Vaccine 12/16/15 Given 1Result Comment: [08/21/2017] [id number] Medications albuterol 0.083% inhalation solution 3 mL = 2.5 mg, Neb, Once, Given in clinic per Ashley Bassett RN, # 3 mL, 0 Refills, Soft Stop, 11/02/17 11:58:00 Start Date: 11/02/17 Status: Ordered albuterol CFC free 90 mcg/inh inhalation aerosol 2, puffs, Inhalation, Every 4 hours, PRN, # 1 each, Refills 1, Tot. Refills 1, Maintenance, 11/02/17 11:47:19, Aerosol, Route to Pharmacy Electronically, [id number], [facility]/pharmacy #1130, Compound Start Date: 11/02/17 Stop Date: 01/01/18 Status: Ordered FLUoxetine 40 mg oral capsule 1 capsule = 40 mg, By Mouth, Daily, # 30 capsule, 2 Refills, Maintenance, 07/28/20 15:59:00 EDT, Capsule, [facility], 163, cm, 12/29/19 9:37:00 EST, Height, 79, kg, 12/20/19 13:33:00 EST, Dry Weight Start Date: 07/28/20 Status: Ordered ibuprofen 600 mg oral tablet 600 mg, 1, tablet, By Mouth, Every 8 hours, PRN, with food or milk, # 50 tablet, Refills 0, Tot. Refills 0, Maintenance, Headache, 06/23/20 13:21:00 EDT, Route to Pharmacy Electronically, [facility]/pharmacy #230, 163, cm, 12/29/19 9:37:00 EST, Height, 79,... Start Date: 06/23/20 Status: Ordered Liletta 52 mg intrauteral device 1 each = 52 mg, Intrauterine, Once, # 1 each, 0 Refills, Soft Stop, 10/25/17 14:21:03 Start Date: 10/25/17 Status: Ordered Methadone = 100 mg, By Mouth, Daily, 0 Refills, Maintenance, 08/11/15 8:54:30 EDT, [facility] Start Date: 08/11/15 Status: Ordered Nicotine [...] Maintenance,06/03/20 16:08:00 EDT, Route to Pharmacy Electronically, [facility]/pharmacy #1130, 163, cm, 12/29/19 9:37:00 [...]
--- OUTSIDE RECORDS SUMMARY | 2023-04-06 09:18 | XMS_ITS | Continuity of Care Document ---
Author Name Unknown Organization [facility] Address [address] [place] [address]- Care Team Providers Care Cigar Sorter Name Role Phone Brittany SOUSA, Bridgette Betancur Primary Care Physician [facility] Date(s): 07/15/20 - 08/14/20 [facility] [address] [place] [address]- [facility] Attending Physician: Rodrick Encinas Admitting Physician: AdmRodrick treadwell Referring Physician: AdmtrRodrick Allergies, Adverse Reactions, Alerts Substance Reaction Severity Status NKA Active Immunizations Given and Recorded Vaccine Date Status Refusal Reason influenza virus vaccine, inactivated 11/14/19 Give n influenza virus vaccine, inactivated 1 08/21/17 Gi claudia influenza virus vaccine, inactivated 08/18/15 Give n tetanus/diphtheria/pertussis, acel(Tdap) 08/21/17 Given Hepatitis A Adult Vaccine 12/16/15 Given 1Result Comment: [08/21/2017] [id number] Medications albuterol 0.083% inhalation solution 3 mL = 2.5 mg, Neb, Once, Given in clinic per Ashley Bassett RN, # 3 mL, 0 Refills, Soft Stop, 11/02/17 11:58:00 Start Date: 11/02/17 Status: Ordered albuterol CFC free 90 mcg/inh inhalation aerosol 2, puffs, Inhalation, Every 4 hours, PRN, # 1 each, Refills 1, Tot. Refills 1, Maintenance, 11/02/17 11:47:19, Aerosol, Route to Pharmacy Electronically, [id number], [facility]/pharmacy #1130, Compound Start Date: 11/02/17 Stop Date: 01/01/18 Status: Ordered FLUoxetine 40 mg oral capsule 1 capsule = 40 mg, By Mouth, Daily, # 30 capsule, 2 Refills, Maintenance, 07/28/20 15:59:00 EDT, Capsule, [facility], 163, cm, 12/29/19 9:37:00 EST, Height, 79, kg, 12/20/19 13:33:00 EST, Dry Weight Start Date: 07/28/20 Status: Ordered ibuprofen 600 mg oral tablet 600 mg, 1, tablet, By Mouth, Every 8 hours, PRN, with food or milk, # 50 tablet, Refills 0, Tot. Refills 0, Maintenance, Headache, 06/23/20 13:21:00 EDT, Route to Pharmacy Electronically, [facility]/pharmacy #[id number], 163, cm, 12/29/19 9:37:00 EST, Height, 79,... Start Date: 06/23/20 Status: Ordered Liletta 52 mg intrauteral device 1 each = 52 mg, Intrauterine, Once, # 1 each, 0 Refills, Soft Stop, 10/25/17 14:21:03 Start Date: 10/25/17 Status: Ordered Methadone = 100 mg, By Mouth, Daily, 0 Refills, Maintenance, 08/11/15 8:54:30 EDT, [facility] Start Date: 08/11/15 Status: Ordered Nicotine 2 [...] Maintenance,06/03/20 16:08:00 EDT, Route to Pharmacy Electronically, [facility]/pharmacy #1130, 163, cm, 12/29/19 [...]
--- NOTE | 2023-04-06 09:41 | ECG_ITS ---
Test Reason : ABD PAIN Blood Pressure : / mmHG Vent. Rate : 105 BPM Atrial Rate : 105 BPM P-R Int : 132 ms QRS Dur : 076 ms QT Int : 336 ms P-R-T Axes : 071 057 041 degrees QTc Int : 444 ms Sinus tachycardia T wave abnormality, consider anterior ischemia Abnormal ECG No previous ECGs available Referred By: Ary Pereira Electronically Signed By:AIDE MEDINA MD
[2023-04-06 09:56] LABS: MANUAL DIFF FLAG NO
[2023-04-06 09:58] LABS: Basophils Percent Auto 0.7 % (0-2); Eosinophils Percent Auto 0.5 % (0-4); Hematocrit 36.4 % (37.0-47.0); Hemoglobin 12.1 g/dl (12.0-16.0); Imm Gran Abs Auto 0.02 X10*3/uL (0.00-0.03); Imm Gran Pct Auto 0.3 % (0.0-0.4); Lymphocytes Absolute Auto 1.7 X10*3/uL (1.2-4.9); Lymphocytes Percent Auto 28.6 % (20-40); Mean Corpuscular HGB Conc 33.2 g/dl (31.0-35.0); Mean Corpuscular Hemoglobin 29.7 pg (27.0-33.0); Mean Corpuscular Volume 89.4 fL (80.0-98.0); Mean Platelet Volume 10.3 fL (9.4-12.3); Monocytes Absolute Auto 0.6 X10*3/uL (0.1-1.2); Monocytes Percent Auto 9.5 % (2-11); Neutrophils Absolute Auto 3.6 x10*3/uL (2.0-8.3); Neutrophils Percent Auto 60.4 % (45-73); Platelet Count 207 X10*3/uL (160-400); Red Blood Count 4.07 X10*6/uL (4.20-5.50); Red Cell Distribution Width 14.2 % (11.0-16.0)
[2023-04-06] MEDS: 0.9 % Sodium Chloride 1,000 ML 999 ML IV ×2 (10:14→12:14)
[2023-04-06 10:17] LABS: INTERNATIONAL NORM RATIO 1.3 (0.9-1.1); Prothrombin Time 14.7 SEC (10.0-13.1)
[2023-04-06 10:55] LABS: Alanine Aminotransferase 52 U/L (0-31); Albumin Level 3.5 g/dL (3.5-5.0); Alkaline Phosphatase 83 U/L (39-117); Anion Gap 12 (12-20); Aspartate Amino Transferase 65 U/L (5-31); Bilirubin Direct 0.6 mg/dL (0.0-0.5); Bilirubin Total 1.4 mg/dL (0.0-1.0); Blood Urea Nitrogen 10 mg/dL (9-16); Carbon Dioxide 29 mmol/L (22-29); Chloride 99 mmol/L (96-108); Estimated Glomerular Filt Rate > 60; Glucose Random 110 mg/dL (60-115); Lipase 15 U/L (8-78); Magnesium 1.4 mg/dL (1.6-2.6); Potassium 3.8 mmol/L (3.3-5.1); Sodium 136 mmol/L (135-145); Total Protein 7.5 g/dL (6.5-8.0)
[2023-04-06 10:58] LABS: Troponin-I High Sensitivity < 2.7 ng/L (<3.5-17.0)
[2023-04-06] MEDS: Magnesium Sulfate/H2O 2 GM/50 ML PIGGYBACK IV (11:24)
[2023-04-06 11:29] LABS: HCG Quantitative < 2 mIU/mL
[2023-04-06 11:36] LABS: Appearance Urine Cloudy; Color Urine Yellow; Glucose Urine UA Negative (Negative); Leukocyte Esterase Urine Moderate (2+) (Negative); Nitrite Urine Positive (Negative); Specific Gravity - Urine <= 1.005 (1.005-1.025); UMIC TRIGGER UACC YES; Urine Blood Negative (Negative); Urine Ketones Negative (Negative); Urine Protein Negative (Neg-Trace)
[2023-04-06 11:38] LABS: Bacteria Urine 4+ (None Seen); Hyaline Casts Urine 0-2 /LPF (0-2); RBC Urine 0-2 /HPF (0-2); UACC Culture Trigger YES
[2023-04-06 13:13] LABS: CT PCR NOT DETECTED (Not Detect.); NG PCR NOT DETECTED (Not Detect.)
== END 2023-04-06 14:28 | disposition home or self-care (01) ==
PROVIDERS: Registered Nurse Emergency; Emergency Provider Emergency Medicine
DX: N39.0 Urinary tract infection, site not specified (principal); B96.20 Unspecified Escherichia coli [E. coli] as the cause of diseases classified elsewhere; R10.9 Unspecified abdominal pain; B19.20 Unspecified viral hepatitis C without hepatic coma; K74.60 Unspecified cirrhosis of liver
CPT/HCPCS: 0353U; 36415; 51798; 80053; 81001; 82248; 83690; 83735; 84484; 84702; 85025; 85610; 87086; 87088; 87186; 93005; 96361; 96365; 96366; 99284; 99285; J3475

== ENCOUNTER 2023-12-10 11:14 | Inpatient (IN) | payer OTHER, SELFPAY ==
--- NOTE | ~2023-12-10 | US_ITS ---
EXAMINATION: US DIAGNOSTIC ULTRASOUND BREAST, RIGHT CLINICAL INFORMATION: Right breast erythema; question abscess. There is no family history provided of breast cancer. COMPARISON: None available. TECHNIQUE: Ultrasound of the breast is performed with real-time olvera scale imaging and color Doppler. FINDINGS: At the 6:00 position, corresponding with the area of erythema, a 1.7 x 0.9 x 1.9 cm heterogeneously hypoechoic subdermal fluid collection is seen. This likely represents a breast abscess. There are further adjacent less well-defined low-attenuation foci which could represent smaller abscesses or foci of edema. No solid mass is seen. US/US breast RT limited IMPRESSION: At the right breast 6:00 position, corresponding with an area of superficial erythema, a 1.9 cm heterogeneous attenuation fluid collection is seen, highly suggestive of an abscess. There are adjacent scattered lesser fluid collections and/or edematous foci. ASSESSMENT: BI-RADS 0 - Incomplete: Needs additional Imaging. RECOMMENDATION: Surgical Consult Recommend aspiration with specimen forwarded for culture and sensitivity and appropriate clinical management. When the patient's condition permits, recommend baseline screening mammography prior to age 40. Findings and recommendations were relayed to Dr. Sumanth Morton M.D. on 12/10/2023 at 10:15 PM.
--- NOTE | ~2023-12-10 | XR_ITS ---
EXAMINATION: XR CHEST 2 VIEWS CLINICAL INFORMATION: Chest pain. COMPARISON: Chest radiograph dated 08/31/2020. TECHNIQUE: Frontal and lateral views of the chest were obtained. FINDINGS: The heart, great vessels, pulmonary vasculature and mediastinum are normal. The lungs show no focal infiltrate, effusion or pneumothorax. There is mild linear scar/subsegmental atelectasis at the left base. There is no acute osseous abnormality. XR/XR chest 2V IMPRESSION: 1. No focal infiltrate or congestive heart failure is seen. 2. There is mild linear scar/subsegmental atelectasis newly seen at the left base. Recommend short-term follow-up chest radiographs to ensure regression/resolution and exclude the possibility of underlying obstructive process.
--- NOTE | 2023-12-10 11:16 | ECG_ITS ---
Test Reason : chest pain Blood Pressure : / mmHG Vent. Rate : 088 BPM Atrial Rate : 088 BPM P-R Int : 136 ms QRS Dur : 070 ms QT Int : 370 ms P-R-T Axes : 057 046 030 degrees QTc Int : 447 ms Artifact in tracing Normal sinus rhythm Nonspecific ST and T wave abnormality Abnormal ECG When compared with ECG of 06-APR-2023 09:42, No significant changes seen Referred By: Catie Lamb Electronically Signed By:SABINE PENALOZA
[2023-12-10 11:44] VITALS: BP 120/80; PULSE 85; RESP 18; TEMP 36.8; O2SAT 98; BMI 30.8
--- NOTE | 2023-12-10 11:46 | ED.GENADULT ---
HPI - General Adult General Chief complaint: General Medical Stated complaint: SOB/Chest pain/Lump R breast Time Seen by Provider: 12/10/23 20:05 Source: patient Mode of arrival: ambulatory Limitations: no limitations History of Present Illness HPI narrative: Patient IV drug user uses cocaine and heroin noticed a small lump about in her right breast a month ago, for last 1 week noticed scabbing and then open wound with pus discharge also had low-grade fever off and on with chills Related Data Home Medications Medication Instructions Recorded Confirmed melatonin 5 mg tablet 5 mg PO BEDTIME 12/10/23 12/10/23 methadone 10 mg/mL oral concentrate 125 mg PO DAILY 12/10/23 12/11/23 Allergies Allergy/AdvReac Type Severity Reaction Status Date / Time No Known Allergies Allergy Verified 08/31/20 11:03 Review of Systems Review of Systems: Yes all other systems are reviewed and are negative [facility] Past Medical History Medical History No known health problems Social History Social History Alcohol intake: current Alcohol intake frequency: a few times a week Alcohol type: hard liquor Smoked in Last 30 Days: Yes Use of substances other than those prescribed or required for medical reasons: Yes Substance Use Type: Crack/Cocaine, Heroin and IV Drugs Substance Use Frequency: Chronic Longstanding Last Used Substance: Hours (ago) Any prior treatment program specific to substance use: Yes Advance Directives: No Advance Directives Information Provided: No Patient : No Physical Exam ED Vital Signs: Vital Signs - 24 hr 12/10/23 11:44 12/10/23 17:00 12/10/23 22:10 Temperature 98.3 F 98.0 F 98.3 F Pulse Rate 85 78 76 Respiratory Rate 18 16 16 Blood Pressure 120/80 131/76 123/74 Pulse Oximetry 98 97 97 Oxygen Delivery Method Room Air Room Air Room Air BMI result Body Mass Index 30.8 Appearance: Alert. Oriented X3. No acute distress. Eyes: PERRLA, No Nystagmus ENT: Pharynx normal. Oral Mucosa moist Neck: Normal inspection. Neck supple. CVS: Normal heart rate and rhythm. Pulses normal. Respiratory: No respiratory distress. Equal air entry bilateral, no wheezing/rales/rhonchi Abdomen: Soft and nontender. Bowel sounds are present, no mass palpable, no CVA tenderness Skin: Skin warm and dry. Normal skin turgor. Extremities: No lower extremity edema. No calf tenderness, IVDA track rangel ++ Neuro: Oriented X 3. Course Course Course Narrative: This is an RME: Additional HPI, ROS, PE not included below will be deferred to primary provider. This is a [id number], with a hx of substance abuse, presenting to the emergency department with complaints of R breast wound x 1.5 weeks, chest pain and shortness of breath x 2 days. CP comes and goes. Patient well-appearing. Vital signs within normal limits. She states that she uses IV drugs and is concerned about side dizziness. She states that she 1st noticed a wound on her right breast which is increased in size and pain. Unable to visualize wound in triage given limited privacy. Plan: Labs, EKG, chest x-ray Medications Administered Discontinued Medications Generic Name Dose Route Start Last Admin Trade Name Freq PRN Reason Stop Dose Admin Vancomycin HCl 2,000 mg in 520 mls @ 250 mls/hr 12/10/23 20:29 12/10/23 23:32 Vancomycin/Ns IV 12/10/23 22:33 Infused ONCE ONE Infusion Lidocaine HCl 2 ml 12/10/23 22:23 12/10/23 23:32 Lidocaine Hcl 1 % Mpf 2 Ml Vial INFILTRATI 12/10/23 22:24 2 ml ONCE ONE Administration Procedures Abscess I/D Site: other (Right breast) Side (if applicable): right Local Anesthetic: lidocaine 1% Amount of anesthesia used (mL): 5 Technique: needle aspiration Amount of fluid expressed (mL): 2 Sent for culture/gram staining?: Yes Packing used?: none Medical Decision Making Medical Decision Making MDM Narrative: Patient with right breast tenderness with open wound with pus discharge which is going on for about a week with history of fever and chills 2 days ago will admit patient for IV antibiotics. Needle aspiration was tried and only 1 cc of pus mixed blood was drained at 07:00 o'clock position Differential Diagnosis Differential Diagnoses: The differential diagnosis associated with the presentation includes Abscess right breast/breast mass/cellulitis Admission/Observation Consideration of admission/observation: Escalation of care including admission/observation considered Consult Healthcare Provider Management of the patient was discussed with: Hospitalist Lab Data MDM Lab Attestation statement: I reviewed the patient's lab results. 12/10/23 17:29 12/10/23 17:29 Labs: Lab Results 12/10/23 12/10/23 12/10/23 Range/Units 12:42 12:43 17:29 WBC 3.7 L (4.8-10.8) X10*3/uL RBC 3.82 L (4.20-5.50) X10*6/uL Hgb 10.7 L (12.0-16.0) g/dl Hct 33.7 L (37.0-47.0) % MCV 88.2 (80.0-98.0) fL MCH 28.0 (27.0-33.0) pg MCHC 31.8 (31.0-35.0) g/dl RDW 15.2 (11.0-16.0) % Plt Count 154 L D (160-400) X10*3/uL MPV 9.7 (9.4-12.3) fL Immature Gran % (Auto) 0.0 (0.0-0.4) % Neut % (Auto) 47.9 (45-73) % Lymph % (Auto) 33.7 (20-40) % [place] % (Auto) 12.2 H (2-11) % Eos % (Auto) 5.7 H (0-4) % Baso % (Auto) 0.5 (0-2) % Lymph # (Auto) 1.2 (1.2-4.9) X10*3/uL [place] # (Auto) 0.5 (0.1-1.2) X10*3/uL Eos # (Auto) 0.2 (0.0-0.4) X10*3/uL Baso # (Auto) 0.0 (0.0-0.2) X10*3/uL Abs Immat Gran (auto) 0.00 (0.00-0.03) X10*3/uL Absolute Neuts (auto) 1.8 L (2.0-8.3) x10*3/uL Absolute Nucleated RBC 0.000 (0.0-0.012) X10*3/uL Nucleated RBC % (auto) 0.0 (0.0-0.2) /100WBC Sodium 135 (135-145) mmol/L Potassium 4.3 (3.3-5.1) mmol/L Chloride 104 (96-108) mmol/L Carbon Dioxide 25 (22-29) mmol/L Anion Gap 10 L (12-20) BUN 10 (9-16) mg/dL Creatinine 0.75 (0.5-1.4) mg/dL Estim Creat Clear Calc 105.0 Estimated GFR > 60 Random Glucose 108 (60-115) mg/dL Lactic Acid (0.5-2.0) mmol/L Calcium 8.4 D (8.4-10.2) mg/dL Total Bilirubin 0.5 (0.0-1.0) mg/dL Direct Bilirubin 0.3 (0.0-0.5) mg/dL AST 97 H (5-31) U/L ALT 87 H (0-31) U/L Alkaline Phosphatase 105 (39-117) U/L Troponin I High Sens < 2.7 (<3.5-17.0) ng/L Total Protein 7.7 (6.5-8.0) g/dL Albumin 3.0 L (3.5-5.0) g/dL Beta HCG, Quant < 2 mIU/mL Urine Opiates Screen (Not Detect) Urine Fentanyl Screen (Not Detect) Ur Barbiturates Screen (Not Detect) Ur Phencyclidine Scrn (Not Detect) Ur Amphetamines Screen (Not Detect) U Benzodiazepines Scrn (Not Detect) Urine Cocaine Screen (Not Detect) U Marijuana (THC) Screen (Not Detect) COVID-19 (MARTHA) Negative (Negative) COVID-19 Clin Com See Note Influenza Type A (GELY) Negative (Negative) Influenza Type B (GELY) Negative (Negative) Influenza A & B Note See Note 12/10/23 12/10/23 Range/Units 17:33 21:10 WBC (4.8-10.8) X10*3/uL RBC (4.20-5.50) X10*6/uL Hgb (12.0-16.0) g/dl Hct (37.0-47.0) % MCV (80.0-98.0) fL MCH (27.0-33.0) pg MCHC (31.0-35.0) g/dl RDW (11.0-16.0) % Plt Count (160-400) X10*3/uL MPV (9.4-12.3) fL Immature Gran % (Auto) (0.0-0.4) % Neut % (Auto) (45-73) % Lymph % (Auto) (20-40) % [place] % (Auto) (2-11) % Eos % (Auto) (0-4) % Baso % (Auto) (0-2) % Lymph # (Auto) (1.2-4.9) X10*3/uL [place] # (Auto) (0.1-1.2) X10*3/uL Eos # (Auto) (0.0-0.4) X10*3/uL Baso # (Auto) (0.0-0.2) X10*3/uL Abs Immat Gran (auto) (0.00-0.03) X10*3/uL Absolute Neuts (auto) (2.0-8.3) x10*3/uL Absolute Nucleated RBC (0.0-0.012) X10*3/uL Nucleated RBC % (auto) (0.0-0.2) /100WBC Sodium (135-145) mmol/L Potassium (3.3-5.1) mmol/L Chloride (96-108) mmol/L Carbon Dioxide (22-29) mmol/L Anion Gap (12-20) BUN (9-16) mg/dL Creatinine (0.5-1.4) mg/dL Estim Creat Clear Calc Estimated GFR Random Glucose (60-115) mg/dL Lactic Acid 1.6 (0.5-2.0) mmol/L Calcium (8.4-10.2) mg/dL Total Bilirubin (0.0-1.0) mg/dL Direct Bilirubin (0.0-0.5) mg/dL AST (5-31) U/L ALT (0-31) U/L Alkaline Phosphatase (39-117) U/L Troponin I High Sens (<3.5-17.0) ng/L Total Protein (6.5-8.0) g/dL Albumin (3.5-5.0) g/dL Beta HCG, Quant mIU/mL Urine Opiates Screen POSITIVE H (Not Detect) Urine Fentanyl Screen POSITIVE H (Not Detect) Ur Barbiturates Screen Not Detected (Not Detect) Ur Phencyclidine Scrn Not Detected (Not Detect) Ur Amphetamines Screen Not Detected (Not Detect) U Benzodiazepines Scrn Not Detected (Not Detect) Urine Cocaine Screen POSITIVE H (Not Detect) U Marijuana (THC) Screen POSITIVE H (Not Detect) COVID-19 (MARTHA) (Negative) COVID-19 Clin Com Influenza Type A (GELY) (Negative) Influenza Type B (GELY) (Negative) Influenza A & B Note Discharge Plan Discharge Clinical Impression: Abscess of breast, right Patient Disposition: Admitted As Inpatient
[2023-12-10 13:25] LABS: COVID-19 Test Negative (Negative); IDNOW Serial# 9DB6401D
[2023-12-10 13:27] LABS: Troponin-I High Sensitivity < 2.7 ng/L (<3.5-17.0)
[2023-12-10 13:41] LABS: IDNOW Serial# 152EDE1D; Influenza A Negative (Negative); Influenza B2 Negative (Negative)
[2023-12-10 17:00] VITALS: BP 131/76; PULSE 78; RESP 16; TEMP 36.7; O2SAT 97
--- NOTE | 2023-12-10 17:32 | MHC.EDTECH ---
PATIENT BLOOD DRAWN ,AND URINE SAMPLE COLLECTED AND SENT TO LAB .
[2023-12-10 17:33] LABS: MANUAL DIFF FLAG NO
[2023-12-10 17:34] LABS: Basophils Percent Auto 0.5 % (0-2); Eosinophils Absolute Auto 0.2 X10*3/uL (0.0-0.4); Eosinophils Percent Auto 5.7 % (0-4); Hematocrit 33.7 % (37.0-47.0); Hemoglobin 10.7 g/dl (12.0-16.0); Lymphocytes Absolute Auto 1.2 X10*3/uL (1.2-4.9); Lymphocytes Percent Auto 33.7 % (20-40); Mean Corpuscular HGB Conc 31.8 g/dl (31.0-35.0); Mean Corpuscular Volume 88.2 fL (80.0-98.0); Mean Platelet Volume 9.7 fL (9.4-12.3); Monocytes Absolute Auto 0.5 X10*3/uL (0.1-1.2); Monocytes Percent Auto 12.2 % (2-11); Neutrophils Absolute Auto 1.8 x10*3/uL (2.0-8.3); Neutrophils Percent Auto 47.9 % (45-73); Platelet Count 154 X10*3/uL (160-400); Red Blood Count 3.82 X10*6/uL (4.20-5.50); Red Cell Distribution Width 15.2 % (11.0-16.0); White Blood Count 3.7 X10*3/uL (4.8-10.8)
[2023-12-10 17:48] LABS: Alanine Aminotransferase 87 U/L (0-31); Alkaline Phosphatase 105 U/L (39-117); Anion Gap 10 (12-20); Aspartate Amino Transferase 97 U/L (5-31); Bilirubin Direct 0.3 mg/dL (0.0-0.5); Bilirubin Total 0.5 mg/dL (0.0-1.0); Blood Urea Nitrogen 10 mg/dL (9-16); Calcium 8.4 mg/dL (8.4-10.2); Carbon Dioxide 25 mmol/L (22-29); Chloride 104 mmol/L (96-108); Estimated Glomerular Filt Rate > 60; Glucose Random 108 mg/dL (60-115); Potassium 4.3 mmol/L (3.3-5.1); Sodium 135 mmol/L (135-145); Total Protein 7.7 g/dL (6.5-8.0)
[2023-12-10 18:00] LABS: HCG Quantitative < 2 mIU/mL
[2023-12-10 18:02] LABS: Amphetamine Screen Urine Not Detected (Not Detect); Barbiturates, Urine Not Detected (Not Detect); Benzodiazepines Screen Urine Not Detected (Not Detect); Cannabinoid Screen Urine POSITIVE (Not Detect); Cocaine Screen Urine POSITIVE (Not Detect); Fentanyl, urine POSITIVE (Not Detect); Opiate Screen Urine POSITIVE (Not Detect); Phencyclidine Screen Urine Not Detected (Not Detect)
--- NOTE | 2023-12-10 20:20 | PC.NURSE ---
this rn assumed care of pt from waiting room @ 1999. pt calm and cooperative this rn and dr godfrey to bedside for assessment. pe orders placed for LA and BC. ot to need iv
[2023-12-10 21:25] LABS: Lactic Acid 1.6 mmol/L (0.5-2.0)
--- NOTE | 2023-12-10 21:30 | PC.NURSE ---
this rn attempted iv x2 with no success additional rn attempted iv x1 with no success dr godfrey made aware md to bedside for US guided iv placement multiple attempts made by md causing delay in obtaining BC and LA and iv antibiotic administration final placement 20g L FA labs obtained pt medicated according to mar
[2023-12-10 22:10] VITALS: BP 123/74; PULSE 76; RESP 16; TEMP 36.8; O2SAT 97
--- NOTE | 2023-12-10 22:19 | PHA.MEDREC ---
Pharmacy Consult ? Medication Reconciliation Pharmacy has completed the medication reconciliation. Patient reported medications. Patient report methadone from [facility], rn will need to call to verify dose. Verito Almaraz, RaymondD
[2023-12-10] MEDS: Lidocaine HCl 1 % MPF 2 ML VIAL INFILTRATI (23:32)
--- NOTE | 2023-12-11 01:32 | P.HPHOSP_ITS ---
History of Present Illness Date of Service: 12/11/23 Attending physician on admission: Nelsy Baldwin Chief Complaint: Right breast pain Funmi Koch is a 38 years old woman with past medical history significant for IVDU (heroin) on methadone and Hep C (untreated) presents to the emergency department complaining of one-week history of right breast pain associated with redness, induration and scabbing. She also noted upon times drainage of watery fluid. She mentioned that about a month ago she noted a lump in the same area associated with dimpling of the skin and nipple retraction. She denied any trauma to her breast or history of breast cancer. She has not been follow as an outpatient with mammography. On her maternal family there are 2 members (mother's cousin and also an aunt) with breast cancer. She denied fever or chills. She denied any headache, palpitation, chest pain or shortness on breath. She admits to recent use of cocaine and heroin. Despite she has history of alcohol abuse she mentioned that she has not been drinking alcohol recently. In the ED, she was found to have normal vital signs. Blood workup was remarkable for neutropenia, 3.7, anemia (Hgb 12.1-->10.7 over the last 6 months) a mild degree of thrombocytopenia, 154. Differential on CBC is remarkable for monocytosis and eosinophilia. There are no electrolyte imbalances. Renal function is normal. Lactic acid is normal. AST and ALT are elevated. test is negative. Urine drug screen is positive for fentanyl, cocaine and marijuana. CXR was obtained and showed no evidence of focal infiltrates of congestive heart failure, except for a mid linear scar/subsegmental atelectasis at the left base. Right breast US a right breast fluid collection highly suspicious for abscess with adjacent scattered laser fluid collection and/or edematous foci (6 o'clock position). ED tx: Vancomycin 2 g IV. Review of Systems 2 Review of Systems: All 12 systems were reviewed and normal except as noted in HPI. [facility] Medical History (Updated 12/11/23 @ 02:12 by Nelys Baldwin MD) IVDU (intravenous drug user) Hepatitis C virus infection Pancytopenia No known health problems Social History Alcohol intake: current Alcohol intake frequency: a few times a week Alcohol type: hard liquor Smoked in Last 30 Days: Yes Use of substances other than those prescribed or required for medical reasons: Yes Substance Use Type: Crack/Cocaine, Heroin and IV Drugs Substance Use Frequency: Chronic Longstanding Last Used Substance: Hours (ago) Any prior treatment program specific to substance use: Yes Advance Directives: No Advance Directives Information Provided: No Patient : No Meds Allergies Allergy/AdvReac Type Severity Reaction Status Date / Time No Known Allergies Allergy Verified 08/31/20 11:03 Active Medications: Current Medications Acetaminophen (Acetaminophen 325 Mg Tablet) 975 mg PO Q6H PRN PRN Reason: Pain, Mild (Pain Scale 1-3) Melatonin (Melatonin 3 Mg Tablet) 6 mg PO BEDTIME PRN PRN Reason: Insomnia Methadone HCl (Methadone Hcl 20 Mg/2 Ml Oral.Conc) 125 mg PO DAILY ANISHA Oxycodone HCl (Oxycodone Hcl Immed Release 5 Mg Tablet) 5 mg PO Q6H PRN PRN Reason: Pain, Severe (Pain Scale 7-10) Pharmacy Consult (Consult Rx Vancomycin Dosing) 1 each MISCELLANE DAILY PRN PRN Reason: Consult order Sodium Chloride (0.9 % Sodium Chloride Flush 3 Ml Syringe) 3 ml IVFLUSH QSHIFT COUNT INCLUDES THE [facility] Home Medications Medication Instructions Recorded Confirmed Last Taken Type melatonin 5 mg tablet 5 mg PO BEDTIME 12/10/23 12/10/23 Unknown History methadone 10 mg/mL oral concentrate 125 mg PO DAILY 12/10/23 12/11/23 1 Day Ago History ~12/10/23 Physical Exam 2 Vital Signs and Narrative: Vital Signs: Last Vital Signs Temp 98.3 F 12/10/23 22:10 Pulse 76 12/10/23 22:10 Resp 16 12/10/23 22:10 BP 123/74 12/10/23 22:10 Pulse Ox 97 12/10/23 22:10 O2 Del Method Room Air 12/10/23 22:10 BMI result Body Mass Index 30.8 Constitutional - Awake and Alert, No apparent distress. Afebrile. HEENT - Straumatic. Normocephalic. Pupils equally round. No scleral icterus. Heart - RRR. No murmurs. Lungs - Normal lung expansion, Normal respiratory effort, No respiratory distress, CTA bilaterally Chest - Right breast: Indurated, erythematous and tender area inferior to the nipple. Increased warmth. No nipple discharge. There is associated scab/?necrotic tissues. (please ED notes for pictures). Gastrointestinal - NT / ND; +BS; No rebound or guarding Extremities - no calf tenderness bilaterally, no swelling Musculoskeletal - Normal inspection, normal ROM Skin - Needle track rangel over both cubital fossa. Neurological - Alert & oriented x3. Normal speech. No focal weakness. Normal behavior. Psychological - Appropriate affect Results Labs 12/10/23 17:29 12/10/23 17:29 Labs: Laboratory Results - last 24 hr 12/10/23 12/10/23 12/10/23 12:42 12:43 17:29 MCV 88.2 MCH 28.0 MCHC 31.8 RDW 15.2 Plt Count 154 L D MPV 9.7 Immature Gran % (Auto) 0.0 Neut % (Auto) 47.9 Lymph % (Auto) 33.7 [place] % (Auto) 12.2 H Eos % (Auto) 5.7 H Baso % (Auto) 0.5 Lymph # (Auto) 1.2 [place] # (Auto) 0.5 Eos # (Auto) 0.2 Baso # (Auto) 0.0 Abs Immat Gran (auto) 0.00 Absolute Neuts (auto) 1.8 L Absolute Nucleated RBC 0.000 Nucleated RBC % (auto) 0.0 Anion Gap 10 L Estim Creat Clear Calc 105.0 Estimated GFR > 60 Random Glucose 108 Lactic Acid Calcium 8.4 D Total Bilirubin 0.5 Direct Bilirubin 0.3 AST 97 H ALT 87 H Alkaline Phosphatase 105 Total Protein 7.7 Albumin 3.0 L Beta HCG, Quant < 2 Urine Opiates Screen Urine Fentanyl Screen Ur Barbiturates Screen Ur Phencyclidine Scrn Ur Amphetamines Screen U Benzodiazepines Scrn Urine Cocaine Screen U Marijuana (THC) Screen COVID-19 (MARTHA) Negative COVID-19 Clin Com See Note Influenza Type A (GELY) Negative Influenza Type B (GELY) Negative Influenza A & B Note See Note 12/10/23 12/10/23 17:33 21:10 MCV MCH MCHC RDW Plt Count MPV Immature Gran % (Auto) Neut % (Auto) Lymph % (Auto) [place] % (Auto) Eos % (Auto) Baso % (Auto) Lymph # (Auto) [place] # (Auto) Eos # (Auto) Baso # (Auto) Abs Immat Gran (auto) Absolute Neuts (auto) Absolute Nucleated RBC Nucleated RBC % (auto) Anion Gap Estim Creat Clear Calc Estimated GFR Random Glucose Lactic Acid 1.6 Calcium Total Bilirubin Direct Bilirubin AST ALT Alkaline Phosphatase Total Protein Albumin Beta HCG, Quant Urine Opiates Screen POSITIVE H Urine Fentanyl Screen POSITIVE H Ur Barbiturates Screen Not Detected Ur Phencyclidine Scrn Not Detected Ur Amphetamines Screen Not Detected U Benzodiazepines Scrn Not Detected Urine Cocaine Screen POSITIVE H U Marijuana (THC) Screen POSITIVE H COVID-19 (MARTHA) COVID-19 Clin Com Influenza Type A (GELY) Influenza Type B (GELY) Influenza A & B Note Imaging Radiologist's Impressions: Impressions Chest X-Ray 12/10/23 12:06 IMPRESSION: 1. No focal infiltrate or congestive heart failure is seen. 2. There is mild linear scar/subsegmental atelectasis newly seen at the left base. Recommend short-term follow-up chest radiographs to ensure regression/resolution and exclude the possibility of underlying obstructive process. Breast Ultrasound 12/10/23 21:35 IMPRESSION: At the right breast 6:00 position, corresponding with an area of superficial erythema, a 1.9 cm heterogeneous attenuation fluid collection is seen, highly suggestive of an abscess. There are adjacent scattered lesser fluid collections and/or edematous foci. ASSESSMENT: BI-RADS 0 - Incomplete: Needs additional Imaging. RECOMMENDATION: Surgical Consult Recommend aspiration with specimen forwarded for culture and sensitivity and appropriate clinical management. When the patient's condition permits, recommend baseline screening mammography prior to age 40. Findings and recommendations were relayed to Dr. Sumanth Morton M.D. on 12/10/2023 at 10:15 PM. Assessment and Plan (1) Abscess of breast, right: Status: Acute (2) Pancytopenia: Status: Acute (3) Hepatitis C virus infection: Qualifiers: Viral hepatitis chronicity: chronic Status: Acute (4) Elevated LFTs: Status: Acute (5) IVDU (intravenous drug user): Status: Acute (6) Anemia: Qualifiers: Anemia type: unspecified type Qualified Code(s): D64.9 - Anemia, unspecified Status: Acute (7) Cellulitis of right breast: Status: Acute Plan Funmi Koch is a 38 years old woman with past medical history significant for IVDU admitted with: * Right breast abscess associated with cellulitis. Admit to hospitalist service. Continue empiric IV antibiotic therapy with vancomycin. Surgery consult. After infection improves patient will need outpatient mammography. * Worsening anemia/pancytopenia. Possible multifactorial: Nutritional, acute infection, chronic hep C infection. ?Underlying malignancy. Anemia workup ordered. Continue to monitor WBC, hemoglobin and platelets. * Substance abuse. Continue methadone (pt stated she takes 125 mg PO in am). * Elevated LFTs. Likely secondary to chronic hepatitis-C infection, untreated. To consider follow as an outpatient with Gastroenterology. Continue to monitor LFTs for now. DVT prophylaxis: SCDs only (possible surgical intervention). Code status: Full. Patient will need hospitalization for at least 2 midnight for right breast abscess and cellulitis treatment with IV antibiotics and evaluation by the surgical service for possible intervention. Quality Stroke Does the patient have a stroke diagnosis?: No VTE Prior VTE?: No VTE Risk Level:: Medical - low VTE Device Contraindication: N/A - Device Ordered VTE Drug Contraindication: Treatment Not Indicated
[2023-12-11 03:16] VITALS: BP 110/67; PULSE 79; RESP 16; O2SAT 97
[2023-12-11 05:08] LABS: Immature Retic Fraction 14.9 % (3.0-15.9); Retic HGB Equivalent 27.9 pg (30.0-35.0); Reticulocyte Percent 1.5 % (0.5-1.8); Reticulocytes Absolute 0.055 X10*6/uL (0.026-0.095)
[2023-12-11 05:30] LABS: Iron 88 mcg/dL (30-160); Percent Iron Saturation 30 % (15-50); Total Iron Binding Capacity 292 mcg/dL (228-428); Unsaturated Iron Binding 204 ug/dL
[2023-12-11 05:43] LABS: Ferritin 36 ng/mL (10-122)
[2023-12-11 05:59] LABS: Folate 11.6 ng/mL (> or = 4.0); Vitamin B12 816 pg/mL (200-900)
--- NOTE | 2023-12-11 06:45 | PHA.PROG ---
Admission Date/Time: December 11, 2023 00:01 Indication: SKIN INFECTION Weight in k.5 kg Adjusted body weight in Kg: Christine body weight in Kg: Obesity Dosing Indication % IBW: Serum Creatinine - Last 168 Hours 12/10/23 17:29 Creatinine 0.75 Estimated CrCl and GFR - Last 168 Hours 12/10/23 17:29 Estim Creat Clear Calc 105.0 Estimated GFR > 60 Vancomycin Loading Dose: 2000 MG Current Vancomycin Dosing Regimen: 1250 MG Q12H Vancomycin Monitoring using AUC goal of 400 - 600 range with trough as surrogate marker: AUC 516 MG/L.HR TROUGH 15.5 MG/L Date and Time for next Vancomycin Level to be drawn: 12/11/23 @1999 Pharmacist Comments on Vancomycin Plan: Vancomycin dosing will take advantage of [employer] as a clinical decision support tool that uses Bayesian modeling to calculate individual patient's pharmacokinetic parameters and forecast the patient's drug concentration time course with the target goal AUC 24 range of 400 - 600 mg/L/hr.
[2023-12-11 07:23] LABS: Creatinine Clr Calc Pharmacy 114.2; Estimated Glomerular Filt Rate > 60
--- NOTE | 2023-12-11 08:07 | P.CONGS_ITS ---
History of Present Illness Consult details Consult date: 12/11/23 Requesting physician: Nelsy Baldwin Narrative: 30-year-old female patient presenting with complaints of pain in the right breast of approximately 1 week duration. She reports feeling a lump in the lower portion of the right breast approximately around the time of [place]. The lump was nontender and gradually increased in size. For the past week however she noted increased pain, redness and black changes in the overlying skin. She noted a clear discharge from the wound starting yesterday. Denies fever or chills. Workup in the emergency department with ultrasound of the right breast revealed a fluid collection in the subcutaneous tissue suggestive of an abscess with underlying fluid in the tissue. Surgical consultation was requested for management of this right breast abscess. She denies a previous history of breast problems or breast surgery. Her family history is significant for several cousins and aunts with breast cancer but no immediate family history. Review of Systems 2 Review of Systems: Yes all other systems are reviewed and are negative Genitourinary: Genitourinary: Denies nipple discharge Integumentary/Breasts: Skin/Breast: Reports furuncle, Reports breast swelling, Reports breast pain, Reports breast mass and Denies nipple discharge PMFSH Past Medical History Medical History IVDU (intravenous drug user) Hepatitis C virus infection Pancytopenia No known health problems Social History Social History Alcohol intake: current Alcohol intake frequency: a few times a week Alcohol type: hard liquor Smoked in Last 30 Days: Yes Use of substances other than those prescribed or required for medical reasons: Yes Substance Use Type: Crack/Cocaine, Heroin and IV Drugs Substance Use Frequency: Chronic Longstanding Last Used Substance: Hours (ago) Any prior treatment program specific to substance use: Yes Advance Directives: No Advance Directives Information Provided: No Patient : No Meds Allergies Allergy/AdvReac Type Severity Reaction Status Date / Time No Known Allergies Allergy Verified 08/31/20 11:03 Active Medications: Current Medications Acetaminophen (Acetaminophen 325 Mg Tablet) 975 mg PO Q6H PRN PRN Reason: Pain, Mild (Pain Scale 1-3) Vancomycin HCl 1,250 mg/ (Sodium Chloride) 250 mls @ 166.667 mls/hr IV Q12H [facility] Melatonin (Melatonin 3 Mg Tablet) 6 mg PO BEDTIME PRN PRN Reason: Insomnia Methadone HCl (Methadone Hcl 20 Mg/2 Ml Oral.Conc) 125 mg PO DAILY [facility] Oxycodone HCl (Oxycodone Hcl Immed Release 5 Mg Tablet) 5 mg PO Q6H PRN PRN Reason: Pain, Severe (Pain Scale 7-10) Pharmacy Consult (Consult Rx Vancomycin Dosing) 1 each MISCELLANE DAILY PRN PRN Reason: Consult order Sodium Chloride (0.9 % Sodium Chloride Flush 3 Ml Syringe) 3 ml IVFLUSH QSHIFT [facility] Home Medications Medication Instructions Recorded Confirmed Last Taken Type melatonin 5 mg tablet 5 mg PO BEDTIME 12/10/23 12/10/23 Unknown History methadone 10 mg/mL oral concentrate 125 mg PO DAILY 12/10/23 12/11/23 1 Day Ago History ~12/10/23 Physical Exam 2 Vital Signs: Vital Signs: Last Vital Signs Temp 98.3 F 12/10/23 22:10 Pulse 79 12/11/23 03:16 Resp 16 12/11/23 03:16 BP 110/67 12/11/23 03:16 Pulse Ox 97 12/11/23 03:16 O2 Del Method Room Air 12/11/23 03:16 BMI result Body Mass Index 30.8 Const: General: cooperative and no acute distress Nutritional Appearance: w ell nourished Orientation/consciousness: patient oriented x3 Limitations: no limitations HEENT: Head: Yes normocephalic and Yes atraumatic Ears: hearing grossly normal bilaterally Chest: Other: Right breast with a wide area of skin necrosis which has broken down and now reveals an open cavity into the subcutaneous tissue. Purulence discharge is noted on her overlying dressing. Palpation reveals an area of thickening going from the 08 o'clock to 5 o'clock location proximally 2 cm below the nipple. There does appear to be an underlying mass in this location. The masses minimally tender to palpation. No axillary lymphadenopathy is appreciated. No other palpable masses are appreciated. Chest/axillae images: 1. Approximate area of open wound right breast. Resp: Effort & Inspection: normal respiratory effort, no audible wheezes, no cough and no respiratory distress Cardio: Jugular venous distension: no JVD GI: Inspection: Yes normal to inspection Skin: Other: Warm, dry, no rash, see breast above Neuro: General: patient oriented x3 Extrem: General: Yes no clubbing, cyanosis or edema Results Labs 12/10/23 17:29 12/11/23 04:37 Labs: Abnormal lab results 12/10/23 12/10/23 12/11/23 Range/Units 17:29 17:33 04:37 WBC 3.7 L (4.8-10.8) X10*3/uL RBC 3.82 L (4.20-5.50) X10*6/uL Hgb 10.7 L (12.0-16.0) g/dl Hct 33.7 L (37.0-47.0) % Plt Count 154 L D (160-400) X10*3/uL [place] % (Auto) 12.2 H (2-11) % Eos % (Auto) 5.7 H (0-4) % Absolute Neuts (auto) 1.8 L (2.0-8.3) x10*3/uL Retic Hgb Equivalent 27.9 L (30.0-35.0) pg Anion Gap 10 L (12-20) AST 97 H (5-31) U/L ALT 87 H (0-31) U/L Albumin 3.0 L (3.5-5.0) g/dL Urine Opiates Screen POSITIVE H (Not Detect) Urine Fentanyl Screen POSITIVE H (Not Detect) Urine Cocaine Screen POSITIVE H (Not Detect) U Marijuana (THC) Screen POSITIVE H (Not Detect) Short CBC 12/10/23 Range/Units 17:29 WBC 3.7 L (4.8-10.8) X10*3/uL Hgb 10.7 L (12.0-16.0) g/dl Hct 33.7 L (37.0-47.0) % Plt Count 154 L D (160-400) X10*3/uL BMP 12/10/23 12/11/23 17:29 04:37 Sodium 135 Potassium 4.3 Chloride 104 Carbon Dioxide 25 BUN 10 Creatinine 0.75 0.69 Calcium 8.4 D Liver Function 12/10/23 Range/Units 17:29 Total Bilirubin 0.5 (0.0-1.0) mg/dL Direct Bilirubin 0.3 (0.0-0.5) mg/dL AST 97 H (5-31) U/L ALT 87 H (0-31) U/L Alkaline Phosphatase 105 (39-117) U/L Albumin 3.0 L (3.5-5.0) g/dL All other labs normal. Assessment and Plan (1) Cellulitis of right breast: Status: Acute (2) Abscess of breast, right: Status: Acute Plan 38-year-old female patient presenting with a right breast abscess which initially presented with a palpable mass which was nontender. Findings are highly suggestive of malignancy and patient will eventually require a biopsy once the overlying infection is improved. No incision and drainage is required at this time as the wound has completely opened and is draining. She will also need a mammogram once the infection has settled. I will follow along during his hospitalization and follow her up in the office upon discharge. Procedures Date of Service Date of Service: 12/11/23
[2023-12-11 09:10] VITALS: BP 116/71; PULSE 68; RESP 16; TEMP 37; O2SAT 96
[2023-12-11] MEDS: 0.9 % Sodium Chloride Flush 3 ML SYRINGE IVFLUSH ×3 (09:10→20:21)
--- NOTE | 2023-12-11 09:51 | PC.NURSE ---
methadone verification form filled out/faxed to [facility] [facility] pharmacy. will administer medication when able.
--- NOTE | 2023-12-11 09:55 | HE.PHANOTE ---
RE METHADONE VERIFICATION LAST DOSE 125 MG GIVEN AT [facility] ON 12/10/23
[2023-12-11] MEDS: methADONE HCl 20 MG/2 ML ORAL.CONC 125 MG PO (10:20)
[2023-12-11] MEDS: vancomycin HCL 1,250 MG in 0.9 % Sodium Chloride 250 ML 166.67 MG IV (10:20)
--- NOTE | 2023-12-11 10:22 | PC.NURSE ---
medication administered per provider order. pt continues to rest in no apparent distress at this time. call palacios placed within reach.
--- NOTE | 2023-12-11 12:34 | PC.NURSE ---
pt speaking w/ recovery team RN, Farrah at this time.
--- NOTE | 2023-12-11 13:04 | PC.NURSE ---
admission worksheet completed. transport notified at this time.
--- NOTE | 2023-12-11 13:36 | PM.EVENT ---
Event Note Date of Service: 12/11/23 Event Note: 38-year-old female patient with past medical history significant for active IV drug use presented with right breast pain, redness and discharge, in ED noted to have pancytopenia, normal renal function electrolytes and lactic acid, elevated LFTs urine toxicology positive for cocaine, fentanyl, marijuana and opiates chest x-ray showed no acute abnormality right breast ultrasound showed fluid collection highly suspicious for abscess with adjacent scattered fluid collection or edematous foci at 06:00 o'clock position, patient admitted to [facility] with a diagnosis of right breast cellulitis/abscess, with high suspicion for malignancy and started on IV vancomycin. Right breast cellulitis/abscess Status post I&D in emergency room, only small amount of blood was drained Continue IV vancomycin is started on 12/11, follow blood cultures No further drainable abscesses noted Breast mass highly suggestive of cancer will need biopsy and mammogram once infection is improved Being followed by General surgery. Pancytopenia question due to chronic hepatitis-C infection//acute infection//due to underlying malignancy follow CBC, normal iron studies B12 and folate. Follow CBC History of substance abuse continue methadone patient admits to taking IV drugs couple times per week no history of withdrawal Will obtain Addiction Team consult, continue methadone. Transaminitis likely due to hepatitis-C recommend outpatient Gastroenterology follow-up. Time Spent With Patient Time: Total time managing care of this patient today ____ minutes.
[2023-12-11 13:45] VITALS: BP 120/75; PULSE 61; RESP 14; TEMP 36.7; O2SAT 98
--- NOTE | 2023-12-11 13:45 | PC.NURSE ---
vss and up to date prior to pt being transported upstairs. pt being transported upstairs at this time.
[2023-12-11 13:59] VITALS: BP 123/66; PULSE 72; RESP 16; TEMP 36.6; O2SAT 96
[2023-12-11 15:47] VITALS: BP 127/69; PULSE 70; RESP 18; TEMP 36.5; O2SAT 99
[2023-12-11 15:52] VITALS: BMI 30.8
--- NOTE | 2023-12-11 15:55 | MHC.RECOVRN ---
Met with pt in ED18 after consult placed to Addiction Medicine for substance use. Pt had presented to the ED with right breast wound, subsequently admitted for breast abscess and cellulitis. Pt laying in bed, asleep, easily wakes to voice, appears comfortable. Pt currently receiving 125 mg methadone daily through [facility] x years. Pt reports significant decrease in opioid use, currently reports heroin/fentanyl, 1 bundle, IV, approx twice per week as well as cocaine, $20, IV, approx twice per week. Pt also reports alcohol use, 10 nips, twice weekly. Pt reports she does not experience alcohol withdrawal. Pt reports having a strong support network, currently lives with family. Pt reports hx significant time in recovery, up to 5 years at a time, last period in recovery was a couple years ago. Pt reports she has had significant lengths of time in treatment and lived in [facility]. Pt very familiar with recovery supports, has utilized recovery coaches, therapy, and AA in the past. Pt plans to resume these services when discharged from the hospital. Pt would like to address current acute medical needs prior to having any referrals for recovery services placed. Pt denies questions or concens for t/w. Encouraged to call if needed.
[2023-12-11 19:35] VITALS: BP 123/72; PULSE 71; RESP 18; TEMP 36.6; O2SAT 97
[2023-12-11 20:24] LABS: Vancomycin Random 10.5 mcg/mL (15-20)
--- NOTE | 2023-12-11 20:37 | HE.PHANOTE ---
re: vanco PATIENTS LEVEL CAME BACK THIS EVENING AT 10.5. INCREASED DOSE TO 1500 MG Q12H. NEXT LEVEL TOMORROW AFTER TWO DOSES 12/12 @1999. PREDICTED AUC 493
[2023-12-11] MEDS: vancomycin HCL 1,500 MG in 0.9 % Sodium Chloride 500 ML 333.33 MG IV (21:40)
[2023-12-12 04:00] VITALS: BP 113/66; PULSE 71; RESP 16; TEMP 36.2; O2SAT 98
[2023-12-12 06:00] LABS: Creatinine Clr Calc Pharmacy 109.4; Estimated Glomerular Filt Rate > 60
[2023-12-12 06:53] VITALS: BP 104/54; PULSE 62; RESP 16; TEMP 36.1; O2SAT 96
[2023-12-12] MEDS: methADONE HCl 20 MG/2 ML ORAL.CONC 125 MG PO (08:11)
[2023-12-12] MEDS: 0.9 % Sodium Chloride Flush 3 ML SYRINGE IVFLUSH ×3 (08:12→21:36)
[2023-12-12] MEDS: vancomycin HCL 1,500 MG in 0.9 % Sodium Chloride 500 ML 333.33 MG IV (10:26)
--- NOTE | 2023-12-12 13:53 | HO.WOUND ---
Wound Consult: Initial 38yr old?F [place] [facility] [place] - See progress notes and H&P for detailed history.? See chart review for recommended outpt follow up for breast biopsy and follow up care. Wound consult placed for Right Breast Wound.? Patient agreeable to assessment and photo documentation.? Right Breast Etiology: Abscess?? Measurements: see charting for detailed measurements undermining 2 o'clock max depth of 2cm Wound Bed: marbled wound bed with pink moist tissue and yellow slough - adherent black dry necrotic tissue Drainage / Odor: no purulent drainage able to be expressed at the time of my assessment - creamy knox drainage noted on dressing Edges: ? irregular Kamla wound: red erythema with firm induration Warmth noted Pain: pt reports pain Goals of Treatment: ? Moisture management with Durafiber packing - outpt follow up per providers Recommendations: 1. Turn and Reposition every 2 hours and as needed for patient comfort.? Use pillows or wedges to support off loading positions. 2. Off Load all bony prominences with use of pillows and heel boots if needed.? Apply Preventative foams where needed. ? 3. Monitor for incontinence and moisture control, use barrier creams when needed for prevention and treatment. 4. Provide adequate and supplemental nutrition.? 5. Order or Continue low air loss mattress. 6. When applicable maintain blood glucose levels per Providers order. 7. Right Breast - Cleanse and irrigate with NS, Pat dry.? Apply barrier wipe to periwound, lightly pack with Durafiber AG, be sure to leave a wick to easy removal.? Cover with Foam dressing.? Change Daily while inpatient. At time of discharge may change every other day but should consider outpt follow up with providers or Outpt Wound Care Follow up. Re-consult wound care Nurse for wound deterioration or wound changes.
--- NOTE | 2023-12-12 14:52 | MHC.CM.PN ---
Pt. lives with family, she completed HCP form here, named her mother, Christina Robins. She goes to [facility] for methadone. She does not have home health services, or medical equipment. She has not been to [facility] or used [facility] in the past. Family to transport upon DC. PCP: [facility] [address] [facility]. CM to call to determine which provider. CM to follow and assist with DC plan.
--- NOTE | 2023-12-12 14:58 | P.PNIM_ITS ---
Subjective Subjective Date of Service: 12/12/23 Interval History: Feeling better, right breast swelling and pain improving, denies fever, no chills, no drainage, tolerating diet,no nausea, no vomiting, or abdominal pain, no diarrhea, no other acute issues overnight. Review of Systems All other system reviewed and negative Physical Exam 2 Vital Signs: Vital Signs: Last Vital Signs Temp 97 F 12/12/23 06:53 Pulse 62 12/12/23 06:53 Resp 16 12/12/23 06:53 BP 104/54 L 12/12/23 06:53 Pulse Ox 96 12/12/23 06:53 O2 Del Method Room Air 12/12/23 06:53 BMI result Body Mass Index 30.8 Const: Other: General resting comfortably in no acute distress. Neck supple no JVD. CVS regular rate rhythm, Respiratory lungs clear to auscultation, no respiratory distress, no wheeze, no rhonchi. Gastrointestinal abdomen soft, non tender, bowel sounds audible, no guarding , no rigidity. Right breast open wound 07:00 o'clock, no drainage, another small area of necrosis around 05:00 o'clock, surrounding erythema improving. Extremities no edema. Neuro nonfocal Skin multiple needle track rangel both cubital fossa Psych appropriate affect Objective Data Active Medications Acetaminophen (Acetaminophen 325 Mg Tablet) 975 mg PO Q6H PRN PRN Reason: Pain, Mild (Pain Scale 1-3) Vancomycin HCl 1,500 mg/ (Sodium Chloride) 500 mls @ 333.333 mls/hr IV Q12H [facility] Last Infusion: 12/12/23 13:51 Dose: Infused Documented By: COTEMA Melatonin (Melatonin 3 Mg Tablet) 6 mg PO BEDTIME PRN PRN Reason: Insomnia Methadone HCl (Methadone Hcl 20 Mg/2 Ml Oral.Conc) 125 mg PO DAILY [facility] Last Admin: 12/12/23 08:11 Dose: 125 mg Documented By: COTEMA Oxycodone HCl (Oxycodone Hcl Immed Release 5 Mg Tablet) 5 mg PO Q6H PRN PRN Reason: Pain, Severe (Pain Scale 7-10) Pharmacy Consult (Consult Rx Vancomycin Dosing) 1 each MISCELLANE DAILY PRN PRN Reason: Consult order Sodium Chloride (0.9 % Sodium Chloride Flush 3 Ml Syringe) 3 ml IVFLUSH QSHIFT [facility] Last Admin: 12/12/23 13:51 Dose: 3 ml Documented By: COTEMA Labs 12/10/23 17:29 12/12/23 05:30 Labs: Laboratory Results - last 24 hr 12/11/23 12/12/23 20:00 05:30 Hold Purple Top SEE NOTE Estim Creat Clear Calc 109.4 Estimated GFR > 60 Random Vancomycin 10.5 L Microbiology Microbiology Results: Microbiology 12/10/23 22:49 Gram Stain - Final Breast Right Routine Culture - Preliminary Culture in progress. 12/10/23 21:05 Blood Culture - Preliminary Blood - Venous No growth after 24 hours. 12/10/23 21:10 Blood Culture - Preliminary Blood - Venous No growth after 24 hours. Assessment and Plan (1) Cellulitis of right breast: Status: Acute (2) IVDU (intravenous drug user): Status: Acute (3) Elevated LFTs: Status: Acute (4) Pancytopenia: Status: Acute Plan 38-year-old female patient with past medical history significant for active IV drug use presented with right breast pain, redness and discharge, in ED noted to have pancytopenia, normal renal function ,electrolytes and lactic acid, elevated LFTs urine toxicology positive for cocaine, fentanyl, marijuana and opiates, chest x-ray showed no acute abnormality, right breast ultrasound showed fluid collection highly suspicious for abscess with adjacent scattered fluid collection or edematous foci at 06:00 o'clock position, patient admitted to [facility] with a diagnosis of right breast cellulitis/abscess, with high suspicion for malignancy and started on IV vancomycin. acute Right breast cellulitis/abscess Status post I&D in emergency room, only small amount of blood was drained, Continue IV vancomycin started on 12/11, blood cultures negative times 24 hours, right breast gm stain showed no organisms No further drainable abscesses noted. Breast mass highly suggestive of cancer will need biopsy and mammogram once infection is improved, being followed by General surgery Dr. Hurst. Pancytopenia question due to chronic hepatitis-C infection//acute infection//due to underlying malignancy follow CBC, normal iron studies B12 and folate. Follow CBC History of substance abuse continue methadone patient admits to taking IV drugs couple times per week ,no history of withdrawal. Seen by Addiction Team patient has outpatient recovery coaches she will resume the services when discharged from the hospital. continue methadone. Transaminitis likely due to hepatitis-C recommend outpatient Gastroenterology follow-up. Follow LFTs Patient need continued inpatient hospitalization for management of acute right breast cellulitis requiring IV antibiotic and close monitoring of CBC and renal function. Quality Stroke Does the patient have a stroke diagnosis?: No VTE Prior VTE?: No VTE Risk Level:: Medical - low VTE Device Contraindication: N/A - Device Ordered VTE Drug Contraindication: Treatment Not Indicated
[2023-12-12 15:16] VITALS: BP 109/57; PULSE 64; RESP 18; TEMP 36.5; O2SAT 97
[2023-12-12 16:18] LABS: Transferrin 216 mg/dL (188-341)
[2023-12-12 18:43] LABS: Vancomycin Random 18.6 mcg/mL (15-20)
--- NOTE | 2023-12-12 18:58 | HE.PHANOTE ---
re: vanco PATIENTS LEVEL CAME BACK AT 18.6. LEVEL WAS DRAWN 2 HOURS EARLY WHICH COULD LEAD TO A FALSELY HIGH LEVEL. WILL DECREASE DOSE HOWEVER DUE TO INDICATION OF SKIN. PREDICTED AUC 449. 1250 MG Q12H/ NEXT DRAW 12/13/23 @1999
[2023-12-12 19:29] VITALS: BP 123/59; PULSE 71; RESP 18; TEMP 36.9; O2SAT 98
[2023-12-12] MEDS: vancomycin HCL 1,250 MG in 0.9 % Sodium Chloride 250 ML 166.67 MG IV (21:36)
[2023-12-13 03:50] VITALS: BP 111/70; PULSE 72; RESP 16; TEMP 36.1; O2SAT 96
[2023-12-13 06:07] LABS: Hematocrit 36.6 % (37.0-47.0); Mean Corpuscular HGB Conc 32.8 g/dl (31.0-35.0); Mean Corpuscular Hemoglobin 28.4 pg (27.0-33.0); Mean Corpuscular Volume 86.5 fL (80.0-98.0); Mean Platelet Volume 10.2 fL (9.4-12.3); Platelet Count 202 X10*3/uL (160-400); Red Blood Count 4.23 X10*6/uL (4.20-5.50); White Blood Count 6.5 X10*3/uL (4.8-10.8)
[2023-12-13 06:22] LABS: Anion Gap 12 (12-20); Blood Urea Nitrogen 12 mg/dL (9-16); Calcium 8.4 mg/dL (8.4-10.2); Carbon Dioxide 21 mmol/L (22-29); Chloride 106 mmol/L (96-108); Creatinine Clr Calc Pharmacy 119.3; Estimated Glomerular Filt Rate > 60; Glucose Random 90 mg/dL (60-115); Potassium 4.2 mmol/L (3.3-5.1); Sodium 135 mmol/L (135-145)
[2023-12-13 07:20] VITALS: BP 115/76; PULSE 76; RESP 16; TEMP 36.8; O2SAT 97
[2023-12-13] MEDS: methADONE HCl 20 MG/2 ML ORAL.CONC 125 MG PO (08:10)
[2023-12-13] MEDS: 0.9 % Sodium Chloride Flush 3 ML SYRINGE IVFLUSH (08:10)
[2023-12-13] MEDS: vancomycin HCL 1,250 MG in 0.9 % Sodium Chloride 250 ML 166.67 MG IV (10:58)
[2023-12-13 13:42] LABS: Alanine Aminotransferase 78 U/L (0-31); Albumin Level 2.9 g/dL (3.5-5.0); Alkaline Phosphatase 115 U/L (39-117); Aspartate Amino Transferase 92 U/L (5-31); Bilirubin Direct 0.2 mg/dL (0.0-0.5); Bilirubin Total 0.3 mg/dL (0.0-1.0); Total Protein 7.6 g/dL (6.5-8.0)
--- NOTE | 2023-12-13 14:17 | MHC.CM.PN ---
Patient is discharged today to home self care. A family member will provide transportation home.
--- NOTE | 2023-12-13 14:21 | PM.DS ---
DS: Providers Provider Date of Service: 12/13/23 Date of admission: 12/11/23 00:01 Primary care physician: Unknown Physician Consults: 12/11/23 00:15 Consult to General Surgery Routine Consulting Provider: [facility] General Surgeons Reason for consultation: Right breast abscess and cellulitis Has provider been notified: No 12/11/23 07:21 Addiction Medicine Routine Consulting Provider: Addiction Covering Reason for consultation: drug abuse Has provider been notified: No 12/11/23 16:09 Consult to Wound Care Routine Reason for consultation: right breast cellulitis DS: Diagnosis Discharge Diagnosis (1) Cellulitis of right breast: Status: Acute (2) IVDU (intravenous drug user): Status: Acute (3) Elevated LFTs: Status: Acute (4) Pancytopenia: Status: Acute DS: Summary Hospital Course Hospital Course: History of presenting illness: Date of Service: 12/11/23 Attending physician on admission: Nelsy Baldwin Chief Complaint: Right breast pain Funmi Koch is a 38 years old woman with past medical history significant for IVDU (heroin) on methadone and Hep C (untreated) presents to the emergency department complaining of one-week history of right breast pain associated with redness, induration and scabbing. She also noted upon times drainage of watery fluid. She mentioned that about a month ago she noted a lump in the same area associated with dimpling of the skin and nipple retraction. She denied any trauma to her breast or history of breast cancer. She has not been follow as an outpatient with mammography. On her maternal family there are 2 members (mother's cousin and also an aunt) with breast cancer. She denied fever or chills. She denied any headache, palpitation, chest pain or shortness on breath. She admits to recent use of cocaine and heroin. Despite she has history of alcohol abuse she mentioned that she has not been drinking alcohol recently. In the ED, she was found to have normal vital signs. Blood workup was remarkable for neutropenia, 3.7, anemia (Hgb 12.1-->10.7 over the last 6 months) a mild degree of thrombocytopenia, 154. Differential on CBC is remarkable for monocytosis and eosinophilia. There are no electrolyte imbalances. Renal function is normal. Lactic acid is normal. AST and ALT are elevated. test is negative. Urine drug screen is positive for fentanyl, cocaine and marijuana. CXR was obtained and showed no evidence of focal infiltrates of congestive heart failure, except for a mid linear scar/subsegmental atelectasis at the left base. Right breast US a right breast fluid collection highly suspicious for abscess with adjacent scattered laser fluid collection and/or edematous foci (6 o'clock position). ED tx: Vancomycin 2 g IV. Hospital course: 38-year-old female patient with past medical history significant for active IV drug use presented with right breast pain, redness and discharge, in ED noted to have pancytopenia, normal renal function ,electrolytes and lactic acid, elevated LFTs urine toxicology positive for cocaine, fentanyl, marijuana and opiates, chest x-ray showed no acute abnormality, right breast ultrasound showed fluid collection highly suspicious for abscess with adjacent scattered fluid collection or edematous foci at 06:00 o'clock position, patient admitted to [facility] with a diagnosis of right breast cellulitis/abscess, with high suspicion for malignancy and started on IV vancomycin, and seen by wound nurse with daily dressing change patient evaluated by general surgeon Dr. Hurst patient noted to have no further drainable abscess, he recommend biopsy for underlying right breast mass and mammogram once infection is improved, blood cultures x2 are negative WBC normalized therefore patient is being discharged home with recommendation for daily dressing and outpatient follow-up with Dr. Hurst in 2 weeks patient is being discharged home on Augmentin 875 mg b.i.d. for total 10 day course of antibiotic. Pancytopenia resolved. History of substance abuse continue methadone patient admitted to using IV drugs couple times per week ,no history of withdrawal,Seen by Addiction Team patient has outpatient recovery coaches she will resume the services when discharged from the hospital. continue methadone. Transaminitis likely due to hepatitis-C recommend outpatient Gastroenterology follow-up. Time Attestation Discharge coordination time: Greater than 30 minutes Quality: Safe Use of Opioids Does Pt have an Active Cancer Diagnosis on the Problem List?: No Quality: Stroke Does the patient have a stroke diagnosis?: No Physical Exam Vital Signs: Vital Signs: Last Vital Signs Temp 98.3 F 12/13/23 07:20 Pulse 76 12/13/23 07:20 Resp 16 12/13/23 07:20 BP 115/76 12/13/23 07:20 Pulse Ox 97 12/13/23 07:20 O2 Del Method Room Air 12/13/23 07:20 BMI result Body Mass Index 30.8 Const: Other: General resting comfortably in no acute distress. Neck supple no JVD. CVS regular rate rhythm, Respiratory lungs clear to auscultation, no respiratory distress, no wheeze, no rhonchi. Gastrointestinal abdomen soft, non tender, bowel sounds audible, no guarding , no rigidity. Right breast open wound 07:00 o'clock, minimal and serous drainage, another small area of necrosis around 05:00 o'clock, surrounding erythema improved. Extremities no edema. Neuro non focal Skin multiple needle track rangel both cubital fossa Psych appropriate affect DS: Data Data Completed and Pending Labs on day of discharge: Laboratory Results - last 24 hr 12/11/23 12/12/23 12/13/23 04:37 18:02 05:46 WBC 6.5 RBC 4.23 Hgb 12.0 Hct 36.6 L MCV 86.5 MCH 28.4 MCHC 32.8 RDW 15.0 Plt Count 202 D MPV 10.2 Absolute Nucleated RBC 0.000 Nucleated RBC % (auto) 0.0 Sodium 135 Potassium 4.2 Chloride 106 Carbon Dioxide 21 L Anion Gap 12 BUN 12 Creatinine 0.66 Estim Creat Clear Calc 119.3 Estimated GFR > 60 Random Glucose 90 Calcium 8.4 Transferrin 216 Total Bilirubin 0.3 Direct Bilirubin 0.2 AST 92 H ALT 78 H Alkaline Phosphatase 115 Total Protein 7.6 Albumin 2.9 L Random Vancomycin 18.6 Preliminary micro results at discharge 12/10/23 21:05 Blood Culture - Preliminary Blood - Venous No growth after 48 hours. 12/10/23 21:10 Blood Culture - Preliminary Blood - Venous No growth after 48 hours. Discharge Plan Discharge Anticipated Discharge Date/Time: 12/13/23 12:53 Patient Disposition: Home, Self-Care Discharge Diagnosis: Acute right breast cellulitis/abscess Right breast mass Pancytopenia Opiate use disorder Referrals: Physician,Unknown J [Primary Care Provider] - 1 Week Discharge Medications: New amoxicillin-pot clavulanate 875-125 mg tablet 1 tab PO BID Qty: 16 0RF Continued methadone 10 mg/mL Concentrate 125 mg PO DAILY melatonin 5 mg Tablet 5 mg PO BEDTIME Discharge Orders: Discharge Order (Routine); Ordered 12/13/23 Ordered By: Naz Avila Diet: Advance to usual diet Activity on Discharge: As tolerated Stand Alone Forms: Patient Portal Discharge page Care Plan Goals: Right breast cellulitis/open wound Take Augmentin 1 tablet twice daily for 8 more days Right breast wound Recommendations: 1. Turn and Reposition every 2 hours and as needed for patient comfort.? Use pillows or wedges to support off loading positions. 2. Off Load all bony prominences with use of pillows and heel boots if needed.? Apply Preventative foams where needed. ? 3. Provide adequate and supplemental nutrition.? 4. Right Breast - Cleanse and irrigate with NS, Pat dry.? Apply barrier wipe to periwound, lightly pack with Durafiber AG, be sure to leave a wick to easy removal.? Cover with Foam dressing change daily x 2 days than every other day outpt follow up with Dr. Hurst call for appointment. Returned to check with worsening redness or drainage. Health Concerns: Right breast mass Continue home medication Plan of Treatment: Outpatient follow-up with Dr. Hurst in 2 weeks please call for appointment. Assessment: As above
== END 2023-12-13 15:04 | disposition home or self-care (01) | DRG 385 ==
LOC: HO.ED 23:48 → HO.EDOVER 12-11 00:08 → HO.S3 12-11 12:41
PROVIDERS: Physician Assistant Medical; Admitting Provider Internal Medicine; Emergency Provider Internal Medicine; Visit Provider Hospitalist
DX: N61.1 Abscess of the breast and nipple (principal); D61.818 Other pancytopenia; F11.20 Opioid dependence, uncomplicated; B18.2 Chronic viral hepatitis C; Z20.822 Contact with and (suspected) exposure to COVID-19; Z79.899 Other long term (current) drug therapy
CPT/HCPCS: 36415; 71046; 76642; 80048; 80076; 80202; 80307; 82565; 82607; 82728; 82746; 83540; 83605; 84466; 84484; 84702; 85025; 85027; 85045; 87040; 87070; 87205; 87502; 87635; 93005; 99221; 99285; J3370; J3371

== ENCOUNTER → 2023-12-10 11:16 | Outpatient (BNV) | payer OTHER, SELFPAY | PROVIDERS: Visit Provider Internal Medicine | DX: R07.9 Chest pain, unspecified (principal) | CPT/HCPCS: 93010 ==

== ENCOUNTER → 2023-12-11 00:01 | Outpatient (BNV) | payer OTHER, SELFPAY | PROVIDERS: Admitting Provider Internal Medicine; Emergency Provider Internal Medicine; Visit Provider Surgery | DX: N61.0 Mastitis without abscess (principal); N61.1 Abscess of the breast and nipple | CPT/HCPCS: 99222 ==

== ENCOUNTER → 2023-12-11 00:01 | Outpatient (BNV) | payer OTHER, SELFPAY | PROVIDERS: Admitting Provider Internal Medicine; Emergency Provider Internal Medicine; Visit Provider Internal Medicine | DX: N61.1 Abscess of the breast and nipple (principal); D61.818 Other pancytopenia; B19.20 Unspecified viral hepatitis C without hepatic coma; R79.89 Other specified abnormal findings of blood chemistry; F19.90 Other psychoactive substance use, unspecified, uncomplicated; D64.9 Anemia, unspecified; N61.0 Mastitis without abscess | CPT/HCPCS: 99223; 99233; 99239; 99499 ==

== ENCOUNTER 2024-05-06 09:58 | Outpatient (AMB) | payer OTHER, SELFPAY ==
--- NOTE | 2024-05-06 10:27 | MHC.OFFVIS ---
Vital Signs 05/06/24 10:50 BP 135/66 Blood Pressure Location Rt brachial Position Sitting Pulse 93 Intake Visit Reasons: follow up right breast abscess Intake Note: Patient is seen in office for ER follow up visit, following right breast abscess. Pt c/o: reports completed two rounds of abx, reports in February 2024 the wound was deep, right breast, reports no oozing or discharge, reports no redness, reports no fever or chills. ED:12/11/23 Pt went to [facility] for this issue on 04/03/24 notes printed and uploaded on chart antbx ? Evening Or Night Nurse Supervisor Required: No Accompanied by: Other Relationship Allergies No Known Allergies Allergy (Verified 05/06/24 10:57) Medication List - Last Reconciled 05/06/24 by Jameel Hurst MD melatonin 5 mg PO BEDTIME methadone 125 mg PO DAILY HPI Comments Details: 38-year-old female patient previously evaluated as an inpatient for a right breast abscess on 12/11/2023. She was treated with IV antibiotics and subsequently required an additional dose of oral antibiotics. She continues to feel a firmness underneath the breast involving a wide area below the nipple-areolar complex. There is no further discharge noted from open wounds. She notes that the right breast is much smaller than the left breast as a result of the infection. She denies any current breast pain, fever or chills. She has not undergone a previous mammogram. She reports abstaining from alcohol for the last 3 months and is currently in a senior care house. PENDING SALE TO [facility] Medical History Mastitis, right, acute Elevated LFTs IVDU (intravenous drug user) Hepatitis C virus infection Pancytopenia No known health problems Social History Household Members: None Housing: House Do you presently have visiting nurse or other home services: No Alcohol intake: current Alcohol intake frequency: a few times a week Alcohol type: hard liquor Patient Tobacco Use Status: Never used Tobacco Substance Use Type: IV Drugs and Marijuana service: No Review of Systems Const All systems reviewed & are unremarkable except as noted in HPI and below Physical Exam Vital Signs: Last Vital Signs Pulse 93 05/06/24 10:50 BP 135/66 05/06/24 10:50 Const General: cooperative and no acute distress Nutritional Appearance: well nourished Orientation/consciousness: patient oriented x3 Limitations: no limitations HEENT Head: Yes normocephalic and Yes atraumatic Ears: hearing grossly normal bilaterally Chest Other: Left breast: No skin change, no nipple retraction, no nipple discharge, no palpable mass, no enlarged lymph nodes. Right breast: Multiple scars are noted throughout the right breast consistent with prior infection. No skin redness is noted. There is definite decrease in breast volume right compared to left. Palpation does reveal postinflammatory changes but no definite mass abscess. There is no tenderness elicited to palpation. Resp Effort & Inspection: normal respiratory effort, no audible wheezes, no cough and no respiratory distress Cardio Jugular venous distension: no JVD GI Inspection: Yes normal to inspection Skin Other: Warm, dry, no rash Neuro General: patient oriented x3 Extrem General: Yes no clubbing, cyanosis or edema Assessment & Plan Assessment & Plan (1) Mastitis, right, acute: Code(s): N61.0 - Mastitis without abscess Category: Medical Plan 30-year-old female patient presenting with a previous history of a complex abscess of the right breast treated with a combination of intravenous and oral antibiotics. The infection is now resolved however she does have persistent inflammatory changes following the infection. I recommended obtaining a baseline ultrasound and mammogram. She should follow up after the mammogram to review the results and discuss treatment options. She expressed understanding and agrees with the plan. Orders: Orders MM diagnostic mammo BI Today N61.0 - Mastitis without abscess US breast RT complete Today N61.0 - Mastitis without abscess Coding Level of Care Code Est Pt Level 3 (33877) Diagnoses Mastitis, right, acute N61.0
[2024-05-06 10:50] VITALS: BP 135/66; PULSE 93
== END 2024-05-06 11:10 | disposition home or self-care (01) ==
PROVIDERS: PCP Internal Medicine; Visit Provider Surgery
DX: N61.0 Mastitis without abscess (principal)
CPT/HCPCS: 99213

== ENCOUNTER → 2024-05-06 09:58 | Outpatient (BNVA) | payer OTHER, SELFPAY | PROVIDERS: PCP Internal Medicine; Visit Provider Surgery | DX: N61.0 Mastitis without abscess (principal) | CPT/HCPCS: 99212 ==

== ENCOUNTER 2024-05-28 14:24 | Outpatient (REF) | payer OTHER, SELFPAY ==
--- NOTE | ~2024-05-28 | US_ITS ---
EXAMINATION: MM DIAGNOSTIC DIGITAL BREAST TOMOSYNTHESIS, BILATERAL US BREAST LIMITED, RIGHT MAMMOGRAPHY: CLINICAL INFORMATION: Patient with rather complex recent history related to right breast abscess/infection seen 12/10/2023 on ultrasound in the lower inner quadrant right breast. Patient completed oral antibiotics, however went to the [facility] ER and was managed as an inpatient with IV antibiotics. On exam, Dr. Hurst palpated a hard masslike region in the area of infection. Patient currently states pain has resolved, however there is persistent patchy red erythematous regions in the lower inner right breast as well as underlying palpable firmness. History of IVDA and hepatitis C. COMPARISON: Mammography: No prior. Ultrasound right breast 12/10/2023. TECHNIQUE: Digital breast tomosynthesis is performed in both the craniocaudal and mediolateral oblique views along with computer-aided detection (CAD). Synthesized 2D images are generated from the tomosynthesis. FINDINGS: There are scattered areas of fibroglandular density (ACR BI-RADS breast composition Category b). In the right breast, lower inner quadrant, spanning a region of approximately 4.3 x 4.4 x 4.4 cm, there is an irregular partly cavitary region with irregular increased density borders, and some degree of parenchymal distortion associated. This is in the region of previously seen abscess and patchy red skin changes. This will be evaluated with ultrasound. There is otherwise no suspicious mass, suspicious grouped calcifications, or additional area of architectural distortion in either breast. No definite skin thickening is evident, and no suspicious axillary findings are present. ULTRASOUND: CLINICAL INFORMATION: As above. COMPARISON: 12/10/2023 right breast ultrasound. TECHNIQUE: Targeted sonographic evaluation right breast was performed using a high frequency linear transducer. The 3:00 to 8:00 region was interrogated. Selected archived documentation. FINDINGS: RIGHT BREAST: In the region of previously seen abscess and mastitis, there is persistent irregularly shaped hypoechoic partly shadowing foci, which demonstrate irregular borders, peripheral increased color Doppler flow, and a tiny amount of internal color Doppler flow. These abnormalities are too irregular to obtain an accurate overall measurement, although they span from the 3:00 to the 6:00 axis of the right breast. There are hyperechoic changes in the fat surrounding these hypoechoic abnormalities, suggesting a desmoplastic-type reaction versus fat necrosis from prior mastitis. Given the imaging findings and physical findings, ultrasound-guided biopsy of the hypoechoic abnormalities is recommended, in particular the the most suspicious focus at 3:00. No persistent abscess is identified or definite fluid collection. US/US breast RT limited mamm only IMPRESSION: Suspicious findings in the right breast on mammography and ultrasound spanning the 3:00 to 6:00 axis. Ultrasound-guided biopsy of the 3:00 axis is recommended as detailed above. Differential includes carcinoma versus atypical or granulomatous mastitis. No suspicious findings in the left breast. Findings and recommendations were discussed with the patient in detail, who is in understanding. OVERALL ASSESSMENT: Mammography: BI-RADS 4 - Suspicious finding Ultrasound: BI-RADS 4 - Suspicious finding RECOMMENDATION: Biopsy recommended
== END 2024-05-28 14:25 | disposition home or self-care (01) ==
LOC: HO.MAMMO 14:24
PROVIDERS: PCP Internal Medicine; Visit Provider Surgery
DX: N61.0 Mastitis without abscess (principal)
CPT/HCPCS: 76642; 77062; 77066

== ENCOUNTER → 2024-05-28 14:30 | Outpatient (BNV) | payer OTHER, SELFPAY | PROVIDERS: PCP Internal Medicine; Visit Provider Radiology Diagnostic Radiology | DX: N63.11 Unspecified lump in the right breast, upper outer quadrant (principal) | CPT/HCPCS: 76642; 77062; 77066 ==

== ENCOUNTER 2024-06-10 07:36 | Outpatient (REF) | payer OTHER, SELFPAY ==
--- NOTE | ~2024-06-10 | MM_ITS ---
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 Also, if any remaining fluid is present, attempted drainage will be performed. COMPARISON: 04/28/2024 right breast ultrasound and bilateral mammography, 12/10/2023 right breast ultrasound. PROCEDURAL DETAILS: The details of the procedure, as well as the risks, benefits, and alternatives to the procedure were explained to the patient in detail and all of her questions were answered, after which written informed consent was obtained. Site and side were confirmed. Prior to the procedure, sonography revealed a region of hypoechoic possible fluid and associated desmoplasia in the 5:00 axis of the right breast, 2 cm deep. Patchy red skin changes were noted to remain in the area. A time-out was performed, the area intended for biopsy was targeted, and the skin of the overlying right breast was then marked, prepped and draped in the usual sterile fashion. Using sonographic guidance, sterile technique, and 1% lidocaine without epinephrine for local anesthesia, multiple core biopsies were obtained through the targeted area with a 14G spring loaded Magneticera core biopsy device. There was real-time confirmation of appropriate needle passage. Sampling was documented. At the completion of tissue sampling, a single butterfly-shaped metallic clip was deposited at the biopsy site. In addition, approximately 1 mL of serosanguineous fluid was aspirated and sent for culture, sensitivities, and acid-fast stain. There was no evidence of immediate complication. SPECIMEN: -4 well formed core samples were obtained -1 mL serosanguineous fluid aspirated. DIGITAL POST-PROCEDURE MAMMOGRAPHY: Breast density: The tissue contains scattered areas of fibroglandular density. BI-RADS version 5, category B. There are no new mammographic findings demonstrated. The postprocedure 2-view direct digital mammogram reveals satisfactory and accurate positioning of the biopsy clip. No hematoma present. The patient tolerated the procedure well and, after assuring adequate hemostasis, was discharged in good condition after reviewing postbiopsy breast care instructions. Final pathology results are pending. MM/MM tomosynthesis diagnostic RT IMPRESSION: 1. No immediate complication from ultrasound-guided percutaneous biopsy right breast, 5:00 axis, in the region of desmoplasia and residual hypoechoic foci. 2. Ultrasound was used to localize and guide marker clip placement. Approximately 1 mL of serosanguineous fluid was also aspirated from the region and sent for culture, sensitivities, and acid-fast stain. 3. The 2-view direct digital postprocedure mammogram reveals accurate positioning of the biopsy clip. No evidence of hematoma. 4. Final pathology results are pending. A separate report with final recommendations will be issued once these results are made available.
[2024-06-10] MEDS: Lidocaine HCl 1 % 20 ML VIAL 9 ML SUBCUT (09:20)
[2024-06-10] MEDS: Sodium Bicarbonate 8.4% 50 MEQ/50 ML VIAL SUBCUT (09:22)
== END 2024-06-10 07:37 | disposition home or self-care (01) ==
LOC: HO.MAMMO 07:36
PROVIDERS: PCP Internal Medicine; Visit Provider Surgery
DX: N61.0 Mastitis without abscess (principal); N64.89 Other specified disorders of breast
CPT/HCPCS: 19083; 77061; 77065; 87070; 87073; 87116; 87205; 87206; 88305; 88312; A4648; C1894

== ENCOUNTER → 2024-06-10 08:00 | Outpatient (BNV) | payer OTHER, SELFPAY | PROVIDERS: PCP Internal Medicine; Visit Provider Radiology Diagnostic Radiology | DX: N61.0 Mastitis without abscess (principal) | CPT/HCPCS: 19083; 77065 ==

== ENCOUNTER 2024-06-17 09:29 | Outpatient (AMB) | payer OTHER, SELFPAY ==
--- NOTE | 2024-06-17 09:34 | A.OFFVIS_ITS ---
Vital Signs 06/17/24 09:35 Height 5 ft 4 in Weight 193 lb 4 oz BMI 33.2 BP 138/85 Blood Pressure Location Lt brachial Position Sitting Pulse 92 Intake Visit Reasons: rt breast us bx results, following 3 o'clock area Intake Note: Patient is seen in office for ultrasound biopsy results, following right breast 3 o'clock area. 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 She was treated with IV antibiotics and subsequently required an additional dose of oral antibiotics. She continues to feel a firmness underneath the breast involving a wide area below the nipple- areolar complex. There is no further discharge noted from open wounds. She n otes that the right breast is much smaller than the left breast as a result of the infection. She denies any current breast pain, fever or chills. She underwent a diagnostic mammogram and ultrasound on 05/28/2024 and was subsequently scheduled for an ultrasound-guided core biopsy on 06/10/2024. Subsequent pathology revealed necrotizing granulomas with fibrosis, lymphoplasmacytic infiltrate and few benign ducts and lobules, consistent with granulomatous mastitis. Subsequent AFB studies were negative and wound cultures were negative. She feels well and denies any ongoing breast symptoms. [facility] Medical History Mastitis, right, acute Elevated LFTs IVDU (intravenous drug user) Hepatitis C virus infection Pancytopenia No known health problems Social History Household Members: None Housing: House Do you presently have visiting nurse or other home services: No Alcohol intake: current Alcohol intake frequency: a few times a week Alcohol type: hard liquor Patient Tobacco Use Status: Never used Tobacco Substance Use Type: IV Drugs and Marijuana service: No Physical Exam Vital Signs: Last Vital Signs Pulse 92 06/17/24 09:35 BP 138/85 06/17/24 09:35 BMI result Body Mass Index 33.2 Const General: cooperative and no acute distress Nutritional Appearance: well nourished Orientation/consciousness: patient oriented x3 Limitations: no limitations HEENT Head: Yes normocephalic and Yes atraumatic Ears: hearing grossly normal bilaterally Chest Other: Exam deferred Resp Effort & Inspection: normal respiratory effort, no audible wheezes, no cough and no respiratory distress Cardio Jugular venous distension: no JVD GI Inspection: Yes normal to inspection Skin Other: Warm, dry, no rash Neuro General: patient oriented x3 Extrem General: Yes no clubbing, cyanosis or edema Assessment & Plan Assessment & Plan (1) Mastitis, right, acute: Code(s): N61.0 - Mastitis without abscess Category: Medical Plan 30-year-old female patient presenting with a previous history of a complex abscess of the right breast treated with a combination of intravenous and oral antibiotics. The infection is now resolved however she does have persistent inflammatory changes following the infection. baseline mammogram and ultrasound performed on 05/28/2024 revealed suspicious findings in the region of the palpable abnormality and infection. Subsequent ultrasound guided biopsies were benign. I recommended continued self-examination and yearly mammograms. She should follow up as needed. Coding Level of Care Code Est Pt Level 3 (87737) Diagnoses Mastitis, right, acute N61.0
[2024-06-17 09:35] VITALS: BP 138/85; PULSE 92; BMI 33.2
== END 2024-06-17 09:37 | disposition home or self-care (01) ==
PROVIDERS: PCP Internal Medicine; Visit Provider Surgery
DX: N61.0 Mastitis without abscess (principal)
CPT/HCPCS: 99213

== ENCOUNTER → 2024-06-17 09:29 | Outpatient (BNVA) | payer OTHER, SELFPAY | PROVIDERS: PCP Internal Medicine; Visit Provider Surgery | DX: N61.21 Granulomatous mastitis, right breast (principal) | CPT/HCPCS: 99212 ==

== ENCOUNTER 2024-07-15 10:36 | Outpatient (REF) | payer OTHER, SELFPAY | END 2024-07-15 10:37 | disposition home or self-care (01) | LOC: HO.LNP 10:36 | PROVIDERS: PCP Internal Medicine; Visit Provider Nurse Practitioner Family | DX: N39.0 Urinary tract infection, site not specified (principal); N20.0 Calculus of kidney; R39.16 Straining to void | CPT/HCPCS: 81003; 87086; 87088; 87186; 99202 ==

== ENCOUNTER 2024-07-15 10:36 | Outpatient (AMB) | payer OTHER, SELFPAY ==
--- NOTE | 2024-07-15 10:37 | A.OFFVIS_ITS ---
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 She has a past medical history of mastitis, elevated LFTs, IV drug use in remission, and hep C. She presents to the office today as a new patient for nephrolithiasis and recurrent urinary tract infections. In discussion with the patient today she reports a longstanding history of nephrolithiasis since her early 20s. She reports ongoing issues with urinary urgency, urinary frequency and dysuria. She also discusses feeling the need to strain with urination. In office urinalysis results reviewed with the patient today 1+ leukocytes positive nitrates PVR 0. Discussed possible UTI. Discussed obtaining retroperitoneal ultrasound for further assessment evaluation. We discussed and stressed the importance of adequate hydration relation to recurrent urinary tract infections as well as nephrolithiasis. We also discussed potential causes of recurrent urinary tract infections. She otherwise denies incontinence, nocturia, hematuria, foul smelling urine, changes to urinary stream, flank pain, fever, and or chills. When asked she denies any history of constipation. She otherwise offers no other issues or concerns at this time. [facility] Medical History Mastitis, right, acute Elevated LFTs IVDU (intravenous drug user) Hepatitis C virus infection Pancytopenia No known health problems Social History Household Members: None Housing: House Do you presently have visiting nurse or other home services: No Alcohol intake: current Alcohol intake frequency: a few times a week Alcohol type: hard liquor Patient Tobacco Use Status: Never used Tobacco Substance Use Type: IV Drugs and Marijuana service: No Review of Systems Const All systems reviewed & are unremarkable except as noted in HPI and below Physical Exam Const General: cooperative, healthy appearing, comfortable, no acute distress, well developed, alert and awake Orientation/consciousness: patient oriented x3 Limitations: no limitations HEENT Head: Yes normal to inspection, Yes normocephalic and Yes atraumatic Ears: hearing grossly normal bilaterally Eyes General: appearance normal, both eyes and all related structures Neck Neck: Yes normal visual inspection and Yes trachea midline Chest Chest palpation & inspection: normal inspection of the chest Resp Effort & Inspection: normal respiratory effort and able to speak in complete sentences Cardio Rate: regular rate GI Inspection: Yes normal to inspection General: Yes no CVA tenderness Back/Spine/Pelvis Back: no CVA tenderness Skin General skin exam: no rashes or lesions noted Neuro General: patient oriented x3 Extrem General: Yes normal to inspection Psych Appearance: grossly normal and well kempt Mental Status: mental status grossly normal Speech and movement: Normal speech and movement present and Clear speech present Affect: normal affect Attitude: cooperative Thought process: Normal thought process present Thought content: Normal thought content present Insight: Fair insight present (Psych) Judgement: Fair judgement present (Psych) Results AMB Urinalysis, Automated UA Leukoctes 15 Sánchez/uL Last Edit by [employer] on 07/15/24 12:09 UA Nitrite Last Edit by [employer] on 07/15/24 12:09 UA Urobilinogen 0.2 mg/dL Last Edit by [employer] on 07/15/24 12:09 UA Protein 15 mg/dL Last Edit by [employer] on 07/15/24 12:09 UA pH 6.0 Last Edit by [employer] on 07/15/24 12:09 UA Blood 0 González/uL Last Edit by [employer] on 07/15/24 12:09 UA Specific Jolon 1.020 Last Edit by [employer] on 07/15/24 12:09 UA Ketone Last Edit by [employer] on 07/15/24 12:09 UA Bilirubin 0 mg/dL Last Edit by [employer] on 07/15/24 12:09 UA Glucose 0 mg/dL Last Edit by [employer] on 07/15/24 12:09 Results Reviewed Results Reviewed: Laboratory Last Values Urine pH (Auto) 6.0 07/15/24 10:43 Specific Jolon (Auto) 1.020 07/15/24 10:43 Urine Protein (Auto) 15 mg/dL 07/15/24 10:43 Glucose (UA)(Auto) 0 mg/dL 07/15/24 10:43 Urine Blood (Auto) 0 González/uL 07/15/24 10:43 Urine Bilirubin (Auto) 0 mg/dL 07/15/24 10:43 Urine Urobilinogen (Auto) 0.2 mg/dL 07/15/24 10:43 Leukocyte Esterase (Auto) 15 Sánchez/uL 07/15/24 10:43 Assessment & Plan Assessment & Plan (1) Recurrent urinary tract infection: Code(s): N39.0 - Urinary tract infection, site not specified Category: Medical (2) Nephrolithiasis: Code(s): N20.0 - Calculus of kidney Category: Medical (3) Urinary tract infection: Code(s): N39.0 - Urinary tract infection, site not specified Category: Medical (4) Straining on urination: Code(s): R39.16 - Straining to void Category: Medical Plan In office urinalysis results reviewed with the patient today; as noted above; will send for urine culture. Will obtain retroperitoneal ultrasound for further assessment evaluation. Discussed UTI prevention with D mannose supplement, vitamin-C, increasing fluid intake, behavioral therapy with timed voiding, perineal hygiene and postcoital voiding, and management of constipation with stool softeners and increased fiber intake. Discussed at length potential causes of nephrolithiasis as well as recurrent UTIs. Will refer to pelvic floor therapy as discussed Start Bactrim as discussed and prescribed PVR 0 mL Follow-up in 1-3 months with imaging and PVR; or sooner with any issues, concerns, and or questions. Orders: Orders AMB Urinalysis Automated Today Z13.9 - Encounter for screening, unspecified US retroperitoneal comp Today N39.0 - Urinary tract infection, site not specified Urine Culture Today N39.0 - Urinary tract infection, site not specified Referrals Pelvic [employer] Referral N20.0 - Calculus of kidney, N39.0 - Urinary tract infection, site not specified Medications: New sulfamethoxazole-trimethoprim 800-160 mg (Bactrim DS) 1 tab PO BID 10 days 20 tabs 0RF N39.0 - Urinary tract infection, site not specified sulfamethoxazole-trimethoprim 800-160 mg (Bactrim DS) 1 tab PO BID 20 tabs 0RF 10 days N39.0 - Urinary tract infection, site not specified Patient Instructions: The patient had an opportunity to ask questions regarding the treatment plan. All questions were answered. Physical exam, labs, and imaging were discussed and reviewed in detail. As well as risks, benefits, and discussion of treatment shields robin. No major barriers to understanding were identified. The patient expressed understanding and agreement with the above treatment plan. The patient was made aware they should contact our office by phone for worsening of their current condition, the appearance of new symptoms, or with any questions or concerns. Compliance is encouraged with any medications and follow up testing that is ordered. It is a privilege to be allowed the opportunity to participate in? your urological care.? Again, if you have any questions or concerns If you have any questions or concerns please do not hesitate to contact me. The office is [phone]. This note is constructed using voice recognition software. 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 Yours sincerely, MONICA Sierra Coding Level of Care Code New Pt Level 4 (41814) Diagnoses Recurrent urinary tract infection N39.0 Nephrolithiasis N20.0 Urinary tract infection N39.0 Straining on urination R39.16
== END 2024-07-15 11:37 | disposition home or self-care (01) ==
PROVIDERS: PCP Internal Medicine; Visit Provider Nurse Practitioner Family
DX: N39.0 Urinary tract infection, site not specified (principal); N20.0 Calculus of kidney; R39.16 Straining to void; Z13.9 Encounter for screening, unspecified
CPT/HCPCS: 99204

== ENCOUNTER 2024-09-05 13:48 | Outpatient (REF) | payer OTHER, SELFPAY ==
--- NOTE | ~2024-09-05 | US_ITS ---
EXAMINATION: US RETROPERITONEAL COMPLETE (RENAL) CLINICAL INFORMATION: Urinary tract infection, site not specified. COMPARISON: None available. TECHNIQUE: Real-time imaging of the kidneys and bladder. FINDINGS: RIGHT KIDNEY: 12.1 x 4.8 x 5.5 cm (SAG x AP x TRV). The kidney is normal in size, contour, and echogenicity. Renal cortical thickness is normal. No renal calculi or hydronephrosis. Upper pole cyst measuring 1.8 x 1.5 x 1.6 cm LEFT KIDNEY: 10.0 x 4.8 x 6.7 cm (SAG x AP x TRV). The kidney is normal in size, contour, and echogenicity. Renal cortical thickness is normal. No renal calculi or hydronephrosis. Upper pole cyst measuring 2.7 x 2.3 x 2.3 cm BLADDER: Well distended and normal. Bilateral ureteral jets are demonstrated. Prevoid bladder volume is 258.5 mL. Postvoid bladder volume is 10.9 mL. US/US retroperitoneal comp IMPRESSION: Unremarkable renal and bladder ultrasound. Electronically signed by: Erick Brown MD 09/06/2024 08:02 AM EDT
== END 2024-09-05 13:49 | disposition home or self-care (01) ==
LOC: HO.US 13:48
PROVIDERS: PCP Internal Medicine; Visit Provider Nurse Practitioner Family
DX: N39.0 Urinary tract infection, site not specified (principal)
CPT/HCPCS: 76770

== ENCOUNTER 2024-12-10 09:50 | Outpatient (RCR) | payer OTHER, SELFPAY ==
--- NOTE | 2024-10-16 10:01 | MHC.PT.EP ---
[facility] [place] Office [place] Office [place] Office [address] Quincy Flores [address] [phone] F: [phone] F: [phone] F: [phone] F: [phone] Physical Therapy Plan of Care Date of Evaluation: 10/16/24 Date of Surgery: Diagnosis: straining to void Assessment: 39 y/o female referred to PT with straining to void, UTI, calculus of kidney for pelvic floor therapy. She presents with constipation, urinatinry frequency, and pelvic floor dysfunction. She has 1-2 bowel movements a week that are bristool stool scale 1 and 2, urinates every hour with associated straining, and some urgency at night. Of note, she is on methadone for 9 months sober and has PMH significant for liver disease and hep C as well as tearing with 3 vaginal births. Pt provided consent for pelvic floor assessment and will perform next visit d/t time constraints. Currently poor abdominal and hip strength as well as altered breathing mechanics. Recommend PT 1x/week for 8 weeks. Frequency and Duration: The patient will be seen 1x/week for 8 weeks Short Term Goals: 1. Pt to be able to correctly activate her PFM to allow improved support to bowel and bladder. 2. Pt to be able to demonstrate diaphragmatic breathing to improve pressure exchange and intra abdominal load management. 3. Pt will be I with body mechanics and toileting technique to reduce pelvic pressure 4. I with ILU bowel massage for improved motility of colon 5. Pt to complete a voiding log in order to accurately assess her bladder habits Assisted Goals: 1. Pt to be able to show improved PFM contraction and relaxation during functional movements such as a bridge or squat to limit ROSA 2. Pt will report >75% decrease in straining with bowel movements to optimize pelvic floor health. 3. Pt to be independent with her final HEP for PFM in order to help maintain gains made in therapy. Treatment Plan: Modalities to reduce pain, spasms and effusion. Manual therapy to restore motion and function. Therapeutic exercise to improve strength and flexibility. Neuromuscular re-education for posture and balance. Therapeutic activities to return to functional activities of daily living. Electronically signed by: Please sign and return to therapist. Thank you for your referral.
--- NOTE | 2024-12-10 10:33 | MHC.PT.DC ---
[facility] [place] Office [place] Office [place] Office [address] Quincy Flores [address] [phone] F: [phone] F: [phone] F: [phone] F: [phone] Physical Therapy Discharge Report Diagnosis: straining to void Date of Surgery: Date of Evaluation: 10/16/24 Date of Discharge: 12/10/24 Treatments to Date: 3 Cancellations to Date: 2 No Shows to Date: 0 Discharge Status: Achieved Goals Improved Function Independent with HEP Discharge Summary: Reports doing much better. She is having regular bowel movements Collier Stool type 4 everyday with nutritional changes, senna, and ILU massage. She is only waking up 1-2x/night to urinate now instead of 6-8x. She feels less bloated and has more energy now. She is compliant with HEP and is now appropriate for d/c. REviewed HEP, box breathing, and continuing with behavioral modifications for pelvic floor health. NO further questions at this time Electronically signed by: Robyn Lua PT Please sign and return to therapist. Thank you for your referral.
== END 2024-12-10 10:35 | disposition home or self-care (01) ==
LOC: HO.PT 09:50
PROVIDERS: PCP Internal Medicine; Visit Provider Nurse Practitioner Family
DX: R39.16 Straining to void (principal); N39.0 Urinary tract infection, site not specified; N20.0 Calculus of kidney
CPT/HCPCS: 97110; 97112; 97140; 97162

== ENCOUNTER 2025-01-08 07:45 | Outpatient (AMB) | payer OTHER, SELFPAY ==
--- NOTE | 2025-01-08 07:47 | A.OFFVIS_ITS ---
Intake Visit Reasons: 2m/US/PVR(set) Intake Note: Patient presents for follow up visit for history of kidney stones, recurrent uti, ultrasound results, and straining to void * imaging completed: 09/05/24 Urology Medications: none Blood Thinner: none PVR: 0ml's Landing Scaler Required: No Accompanied by: Self / Same As Patient Allergies No Known Allergies Allergy (Verified 01/08/25 08:09) Medication List - Last Reconciled 01/08/25 by MONICA Sierra melatonin 5 mg PO BEDTIME methadone 125 mg PO DAILY HPI Comments Details: Funmi is a very pleasant 39-year-old female patient of Dr. Nascimento. She has a past medical history of mastitis, elevated LFTs, IV drug use in remission, and hep C. She presents to the office today for follow-up. Of note, patient was seen approximately 6 months ago as a new patient for nephrolithiasis as well as recurrent urinary tract infections at which time a retroperitoneal ultrasound was ordered for further assessment evaluation. These results were reviewed with the patient today. Bilateral kidneys are normal in size, contour, and echogenicity. Bilateral renal cysts. No hydronephrosis or renal calculi noted. The bladder is well distended and normal. Pre void bladder volume is approximately 260 mL. Postvoid bladder volume is approximately 10 mL. Unremarkable retroperitoneal ultrasound. She reports having completed pelvic floor therapy and found this extremely helpful. She currently denies any bothersome urinary issues or concerns. Last urinary tract infection 06/28. She denies urinary urgency, urinary frequency, incontinence, nocturia, hematuria, dysuria, foul smelling urine, changes to urinary stream, flank pain, fever, and or chills. She is happy with her current voiding parameters. In office urinalysis results reviewed with the patient today 3+ microscopic hematuria noted however patient currently on menses. PVR 0 mL. When asked she denies any history of constipation. She otherwise offers no other issues or concerns at this time. [facility] Medical History Mastitis, right, acute Elevated LFTs IVDU (intravenous drug user) Hepatitis C virus infection Pancytopenia No known health problems Social History Household Members: None Housing: House Do you presently have visiting nurse or other home services: No Alcohol intake: current Alcohol intake frequency: a few times a week Alcohol type: hard liquor Patient Tobacco Use Status: Never used Tobacco Substance Use Type: IV Drugs and Marijuana service: No Review of Systems Const All systems reviewed & are unremarkable except as noted in HPI and below Physical Exam Const General: cooperative, healthy appearing, comfortable, no acute distress, well developed, alert and awake Nutritional Appearance: overweight Orientation/consciousness: patient oriented x3 Limitations: no limitations HEENT Head: Yes normal to inspection, Yes normocephalic and Yes atraumatic Ears: hearing grossly normal bilaterally Eyes General: appearance normal, both eyes and all related structures Neck Neck: Yes normal visual inspection and Yes trachea midline Chest Chest palpation & inspection: normal inspection of the chest Resp Effort & Inspection: normal respiratory effort and able to speak in complete sentences Cardio Rate: regular rate GI Inspection: Yes normal to inspection General: Yes no CVA tenderness Back/Spine/Pelvis Back: no CVA tenderness Skin General skin exam: no rashes or lesions noted Neuro General: patient oriented x3 Extrem General: Yes normal to inspection Psych Appearance: grossly normal and well kempt Mental Status: mental status grossly normal Speech and movement: Normal speech and movement present and Clear speech present Affect: normal affect Attitude: cooperative Thought process: Normal thought process present Thought content: Normal thought content present Insight: Fair insight present (Psych) Judgement: Fair judgement present (Psych) Office Procedures Post Void Residual Post Residual Void Post Void Residual (PVR): 0 17044-[id number] Void Residual by ultrasound Results AMB Urinalysis, Automated UA Leukoctes 70 Sánchez/uL Last Edit by Remed[employer] on 01/08/25 08:11 UA Nitrite Last Edit by Remedios [employer]dick on 01/08/25 08:11 UA Urobilinogen 0.2 mg/dL Last Edit by Remedios [employer] on 01/08/25 08:11 UA Protein 0 mg/dL Last Edit by Remedios Burdick on 01/08/25 08:11 UA pH 6.0 Last Edit by Remedios Burdick on 01/08/25 08:11 UA Blood 200 González/uL Last Edit by Remedios Burdick on 01/08/25 08:11 UA Specific [place] 1.015 Last Edit by Remedois Burdick on 01/08/25 08:11 UA Ketone Last Edit by Remedios Burdick on 01/08/25 08:11 UA Bilirubin 0 mg/dL Last Edit by Remedios Burdick on 01/08/25 08:11 UA Glucose 0 mg/dL Last Edit by Remedios Burdick on 01/08/25 08:11 Results Reviewed Results Reviewed: Date of Service: 09/05/24 EXAMINATION: US RETROPERITONEAL COMPLETE (RENAL) FINDINGS: RIGHT KIDNEY: 12.1 x 4.8 x 5.5 cm (SAG x AP x TRV). The kidney is normal in size, contour, and echogenicity. Renal cortical thickness is normal. No renal calculi or hydronephrosis. Upper pole cyst measuring 1.8 x 1.5 x 1.6 cm LEFT KIDNEY: 10.0 x 4.8 x 6.7 cm (SAG x AP x TRV). The kidney is normal in size, contour, and echogenicity. Renal cortical thickness is normal. No renal calculi or hydronephrosis. Upper pole cyst measuring 2.7 x 2.3 x 2.3 cm BLADDER: Well distended and normal. Bilateral ureteral jets are demonstrated. Prevoid bladder volume is 258.5 mL. Postvoid bladder volume is 10.9 mL. IMPRESSION: Unremarkable renal and bladder ultrasound. Assessment & Plan Assessment & Plan (1) Straining on urination: Code(s): R39.16 - Straining to void Category: Medical (2) Nephrolithiasis: Code(s): N20.0 - Calculus of kidney Category: Medical (3) Recurrent urinary tract infection: Code(s): N39.0 - Urinary tract infection, site not specified Category: Medical (4) Renal cyst: Code(s): N28.1 - Cyst of kidney, acquired Category: Medical Plan In office urinalysis results reviewed with the patient today; as noted above; will send for urine cytology. PVR 0 mL Recent retroperitoneal ultrasound results reviewed with the patient today; as noted above. Patient currently denies any bothersome urinary issues or concerns. She reports be happy with current voiding parameters. Discussed UTI prevention with D mannose supplement, vitamin-C, increasing fluid intake, behavioral therapy with timed voiding, perineal hygiene and postcoital voiding, and management of constipation with stool softeners and increased fiber intake. Follow-up in 6 months with PVR; or sooner with any issues, concerns, and or qu estions. Patient Instructions: The patient had an opportunity to ask questions regarding the treatment plan. All questions were answered. Physical exam, labs, and imaging were discussed and reviewed in detail. As well as risks, benefits, and discussion of treatment choices. No major barriers to understanding were identified. The patient expressed understanding and agreement with the above treatment plan. The patient was made aware they should contact our office by phone for worsening of their current condition, the appearance of new symptoms, or with any questions or concerns. Compliance is encouraged with any medications and follow up testing that is ordered. It is a privilege to be allowed the opportunity to participate in? your urological care.? Again, if you have any questions or concerns If you have any questions or concerns please do not hesitate to contact me. The office is [phone]. This note is constructed using voice recognition software. While every effort has been made to ensure accuracy stick feeder errors may have been included. Yours sincerely, MONICA Sierra Coding Level of Care Code Est Pt Level 3 (75316) Diagnoses Straining on urination R39.16 Nephrolithiasis N20.0 Recurrent urinary tract infection N39.0 Renal cyst N28.1 CPT Codes Post Residual Void - PVR CPT Code: 59332-Fhed Void Residual by ultrasound ([id number])
== END 2025-01-08 08:06 | disposition home or self-care (01) ==
PROVIDERS: PCP Internal Medicine; Visit Provider Nurse Practitioner Family
DX: R39.16 Straining to void (principal); N20.0 Calculus of kidney; N39.0 Urinary tract infection, site not specified; N28.1 Cyst of kidney, acquired; Z13.9 Encounter for screening, unspecified
CPT/HCPCS: 99213

== ENCOUNTER 2025-01-08 07:45 | Outpatient (REF) | payer OTHER, SELFPAY ==
[2025-01-08 18:00] LABS: Urine Cytology See Pathology rpt
== END 2025-01-08 07:46 | disposition home or self-care (01) ==
LOC: HO.LNP 07:45
PROVIDERS: PCP Internal Medicine; Visit Provider Nurse Practitioner Family
DX: R39.16 Straining to void (principal); N39.0 Urinary tract infection, site not specified; N20.0 Calculus of kidney; N28.1 Cyst of kidney, acquired
CPT/HCPCS: 51798; 81003; 88112; 99212